=== PATIENT | female | born 1950 | race Caucasian/White ===

== ENCOUNTER → 2016-10-08 | Outpatient (CLI) | payer MEDICARE, OTHER ==
--- NOTE | 2016-10-08 09:57 | MR ---
MRI brain without contrast HISTORY: Visual changes, cerebrovascular accident Multiplanar multisequence images obtained through the brain and correlated to prior MR brain dated 04 Feb 2012 Cortical atrophy is noted. No restricted diffusion. White matter signal changes on inversion recovery and T2-weighted sequences are noted in the right frontal and parietal lobes similar to prior exam as well as in the left frontoparietal distribution. Scattered hyperintensities are also present on inve rsion recovery and T2-weighted sequences within the periventricular and subcortical white matter. The re is no mass effect. Cerebellopontine angles, corpus callosum, pituitary, cervical medullary junctio n are stable. Some inflammatory changes present within the bilateral maxillary sinuses, ethmoid air c ells. Inflammatory change again noted within the mastoids on the left. There are normal vascular flow voids present. The orbits show symmetric appearance. IMPRESSION: Chronic watershed infarctions show a similar appearance to previous exam. Additional find ings above.
== END | disposition home or self-care (01) ==
LOC: RADMRIMAIN 08:38
PROVIDERS: ATTEND Family Medicine
DX: H53.9 Unspecified visual disturbance (principal); Z86.73 Personal history of transient ischemic attack (TIA), and cerebral infarction without residual deficits
CPT/HCPCS: 70551

== ENCOUNTER → 2016-10-19 | Outpatient (CLI) | payer MEDICARE, OTHER ==
--- NOTE | 2016-10-22 07:03 | MM ---
Reason for exam: screening (asymptomatic). Last mammogram was performed 1 year and 3 months ago. History: Patient is postmenopausal. Family history of breast cancer in maternal cousin and breast cancer in maternal aunt at age 52. Excisional biopsy of the left breast. Physical Findings: A clinical breast exam by your physician is recommended on an annual basis and results should be correlated with mammographic findings. MG 3D Screening Mammo W/Cad Bilateral CC and MLO view(s) were taken. Prior study comparison: July 12, 2015, bilateral MG screening mammo w CAD. July 07, 2014, bilateral MG screening mammo w CAD. There are scattered fibroglandular densities. There is no discrete abnormality. No significant changes when compared with prior studies. ASSESSMENT: Negative, BI-RAD 1 RECOMMENDATION: Routine screening mammogram of both breasts in 1 year.
== END | disposition home or self-care (01) ==
LOC: RADMAMWWP 09:03
PROVIDERS: ATTEND Family Medicine
DX: Z12.31 Encounter for screening mammogram for malignant neoplasm of breast (principal)
CPT/HCPCS: 77063; G0202

== ENCOUNTER → 2017-12-19 | Outpatient (CLI) | payer MEDICARE, OTHER ==
--- NOTE | 2017-12-19 11:28 | XR ---
EXAMINATION TYPE: XR knee complete bilateral DATE OF EXAM: 12/19/2017 CLINICAL HISTORY: pain TECHNIQUE: Three views of the right knee are obtained. COMPARISON: None. FINDINGS: There is no acute fracture/dislocation. The tri-compartment joint spaces demonstrate mode rate medial tibiofemoral joint space narrowing. Mild patellofemoral joint space narrowing. Suspect an terior loose body. The overlying soft tissue appears unremarkable. IMPRESSION: There is no acute fracture or dislocation. Degenerative changes in the possible loose demetrius dy. ICD 10 NO FRACTURE, INITIAL EVALUATION EXAMINATION TYPE: XR knee complete bilateral DATE OF EXAM: 12/19/2017 CLINICAL HISTORY: pain TECHNIQUE: Three views of the left knee are obtained. COMPARISON: None. FINDINGS: There is no acute fracture/dislocation. The tri-compartment joint spaces appear within no rmal limits. The overlying soft tissue appears unremarkable. IMPRESSION: There is no acute fracture or dislocation ICD 10 NO FRACTURE, INITIAL EVALUATION
== END | disposition home or self-care (01) ==
LOC: RADXRMAIN 10:35
PROVIDERS: ATTEND Family Medicine
DX: M25.561 Pain in right knee (principal); M25.562 Pain in left knee

== ENCOUNTER 2018-04-17 09:57 | Day surgery (SDC) | payer MEDICARE, OTHER ==
[2018-04-14 15:57] VITALS: BMI 34.4
[2018-04-17 11:02] VITALS: RESP 18; TEMP 97.8
[2018-04-17] MEDS: LACTATED RINGERS 1,000 ML IV SCH ×2 (11:14→11:16)
[2018-04-17] MEDS ORDERED: LIDOCAINE 1% INJ 10MG/ML (20 ML MDV) ONE (11:18)
[2018-04-17] MEDS ORDERED: PROPOFOL 10 MG/ML 20 ML VIAL IV ONE (11:18)
--- NOTE | 2018-04-17 11:29 | P.PCN ---
Date of Procedure: 04/17/18 Procedure(s) Performed: BRIEF HISTORY: Patient is a 68-year-old, pleasant, white female , scheduled for an upper endoscopy as a part of evaluation of long-standing history of GERD. He has been on Nexium 40 mg daily for several years but recently she is been having worsening symptoms at night with intermittent episodes of nausea vomiting and passive regurgitation. She is hence scheduled for an upper endoscopy to rule out complicated reflux disease. PROCEDURE PERFORMED: Esophagogastroduodenoscopy with biopsy. PREOPERATIVE DIAGNOSIS: Long-standing history of GERD. IV sedation per anesthesia. PROCEDURE: After informed consent was obtained, the patient was brought into the endoscopy unit. IV sedation was administered by Anesthesia under continuous monitoring. Initially the Olympus GIF-140 video endoscope was inserted into the mouth. Esophagus intubated without any difficulty. It was gradually advanced into the stomach and duodenum and carefully examined. The bulb and the second part of the duodenum appeared normal. The scope at this time was withdrawn to the stomach, adequately insufflated with air, and upon careful examination, mucosa of the antrum, had mild gastritis and biopsies were done from this area. The body, cardia and the fundus appeared normal. The scope was then withdrawn into the esophagus. Small hiatal hernia noted. The GE junction was located at 39 cm from the incisors. There were linear erosions in the distal esophagus consistent with LA grade B reflux esophagitis. Rest of the esophagus appeared normal and the patient tolerated the procedure well IMPRESSION: 1. Small hiatal hernia and linear erosions in the distal esophagus consistent with LA grade B reflux esophagitis. 2. Mild antral gastritis. RECOMMENDATIONS: The findings of this examination were discussed with the patient her family. She was advised to change the Nexium to evening half hour before dinner and follow antireflux measures. She was also advised to use Zantac at bedtime as needed..
[2018-04-17 12:19] VITALS: BP 111/71; PULSE 58
== END 2018-04-17 13:13 | disposition home or self-care (01) ==
LOC: ORWHC2ENDO 09:57
PROVIDERS: ATTEND Internal Medicine Gastroenterology
DX: K21.0 Gastro-esophageal reflux disease with esophagitis (principal); K29.50 Unspecified chronic gastritis without bleeding; K44.9 Diaphragmatic hernia without obstruction or gangrene; E78.5 Hyperlipidemia, unspecified; I10 Essential (primary) hypertension; Z79.82 Long term (current) use of aspirin; Z79.899 Other long term (current) drug therapy
CPT/HCPCS: 88305; 43239; J2001; J2704

== ENCOUNTER → 2018-04-23 | Outpatient (CLI) | payer MEDICARE, OTHER ==
--- NOTE | 2018-04-24 11:19 | MM ---
Reason for exam: screening (asymptomatic). Last mammogram was performed 1 year and 6 months ago. History: Patient is postmenopausal. Family history of breast cancer in maternal cousin and breast cancer in maternal aunt at age 52. Excisional biopsy of the left breast. Physical Findings: A clinical breast exam by your physician is recommended on an annual basis and results should be correlated with mammographic findings. MG 3D Screening Mammo W/Cad Bilateral CC and MLO view(s) were taken. Prior study comparison: October 19, 2016, bilateral MG 3d screening mammo w/cad. July 12, 2015, bilateral MG screening mammo w CAD. There are scattered fibroglandular densities. No suspicious abnormality. No significant changes when compared with prior studies. ASSESSMENT: Negative, BI-RAD 1 RECOMMENDATION: Routine screening mammogram of both breasts in 1 year.
== END | disposition home or self-care (01) ==
LOC: RADMAMWWP 11:12
PROVIDERS: ATTEND Family Medicine
DX: Z12.31 Encounter for screening mammogram for malignant neoplasm of breast (principal)
CPT/HCPCS: 77063; 77067

== ENCOUNTER → 2018-10-07 | Outpatient (CLI) | payer MEDICARE, OTHER ==
[2018-10-07 13:19] LABS: HGB 14.6 gm/dL (11.4-16.0); MCH 31.2 pg (25.0-35.0); MCHC 33.3 g/dL (31.0-37.0); MCV 93.7 fL (80.0-100.0); Mean Platelet Volume 7.2; Platelet Count 137 k/uL (150-450); RBC 4.69 m/uL (3.80-5.40); RDW 15.2 % (11.5-15.5); WBC 7.7 k/uL (3.8-10.6)
[2018-10-07 14:14] LABS: Potassium 4.7 mmol/L (3.5-5.1)
== END ==
LOC: LABPAT 11:47
PROVIDERS: ATTEND Internal Medicine Cardiovascular Disease
DX: Z01.812 Encounter for preprocedural laboratory examination (principal); I10 Essential (primary) hypertension; R94.39 Abnormal result of other cardiovascular function study
CPT/HCPCS: 36415; 80051; 82565; 84520; 85027

== ENCOUNTER 2018-10-16 07:41 | Day surgery (SDC) | payer MEDICARE, OTHER ==
[2018-10-14 08:21] VITALS: BMI 32.8
[~2018-10-16 07:41] MED LIST: ALPRAZolam 0.25 MG TAB PO PRN; ALPRAZolam 0.5 MG TAB PO PRN; ASPIRIN 325 MG TAB PO STA; ATORVASTATIN 80 MG TAB PO STA; NITROGLYCERIN SL TABS 0.4 MG TAB SUBLINGUAL PRN; SODIUM CHLORIDE 0.9% 1,000 ML in EMPTY BAG 1 BAG IV ONE
[2018-10-16] MEDS ORDERED: amLODIPine 5 MG TAB ONE (08:08)
[2018-10-16 08:40] VITALS: RESP 16; TEMP 98.3
[2018-10-16] MEDS ORDERED: LIDOCAINE 1% INJ 10MG/ML (20 ML MDV) ONE (09:39)
[2018-10-16] MEDS ORDERED: VERAPAMIL 2.5 MG/ML 2 ML AMP ONE (09:39)
[2018-10-16] MEDS ORDERED: fentaNYL (PF) 50 MCG/ML 2 ML AMP ONE (09:46)
[2018-10-16] MEDS ORDERED: fentaNYL (PF) 50 MCG/ML 2 ML AMP IV ONE (09:48)
[2018-10-16] MEDS ORDERED: MIDAZOLAM 2 MG/2 ML VIAL IV ONE (09:48)
[2018-10-16] MEDS ORDERED: LIDOCAINE 1% INJ 10MG/ML (20 ML MDV) SQ ONE (09:54)
[2018-10-16] MEDS ORDERED: VERAPAMIL SYRINGE (5 MG/10 ML) INTRAARTER ONE ×2 (09:57→10:18)
[2018-10-16] MEDS ORDERED: HEPARIN SODIUM 1,000 UN/ML (10ML VL) ONE (09:59)
[2018-10-16] MEDS ORDERED: HEPARIN SODIUM 1,000 UN/ML (10ML VL) IV ONE (10:00)
[2018-10-16] MEDS ORDERED: RX INFO: IV CONTRAST WAS GIVEN 1 EACH MISC MISCELLANE PRN (10:20)
[2018-10-16] MEDS ORDERED: IOPAMIDOL-370 125ML BTL INJ ONE (10:22)
--- NOTE | 2018-10-16 10:28 | P.CARDCATH ---
Date of Procedure: 10/16/18 Preoperative Diagnosis: Positive stress test Postoperative Diagnosis: Normal coronary arteries Procedure(s) Performed: Left heart catheterization without left ventriculography Description of Procedure: HISTORY: This is a 68-year-old female with history of hypertension, hyperglycemia and smoking who recently had a stress test which showed a possible ischemia in the inferior wall area. Patient is given the option of having a stress echocardiogram or cardiac catheterization. Patient preferred to have a cardiac cath for definitive diagnosis CONSENT:I have discussed the risks, benefits and alternative therapies for the above-mentioned procedure and for both sedation/analgesia as well as necessary blood product administration, if indicated, as they pertain to this patient. The patient has indicated understanding and acceptance of the risks and procedures discussed. PROCEDURE: Patient was brought to the lab in a fasting state. Patient was given some IV sedation. The right wrist is infiltrated with lidocaine and right radial artery was entered using Seldinger technique. A 6-Maldivian catheter was left in place and selective coronary arteriography was performed. Patient tolerated the procedure well. TR band was applied for hemostasis. No immediate complications were noted and patient was transferred to [facility] in a stable condition Conscious Sedation: Versed 1mg Fentanyl 50 g Duration 26minutes HEMODYNAMICS: The aortic pressure is 140/70. The left ventricle end-diastolic pressure is about 10. There was no gradient across the aortic valve SELECTIVE CORONARY ARTERIOGRAPHY: LEFT MAIN: Normal length and patent THE LEFT ANTERIOR DESCENDING CORONARY ARTERY:. This is a good caliber vessel giving rise to good-sized 2 diagonal and septal branches. The LAD and branches are free of occlusive disease THE LEFT CIRCUMFLEX AND IS CORONARY ARTERY:. This is a good caliber vessel giving rise to good-sized OM branch. Free of occlusive disease. Codominant THE RIGHT CORONARY ARTERY: This is a codominant vessel is good in size. Free of occlusive disease LEFT VENTRICULOGRAPHY:. Not performed FINAL IMPRESSION: Normal coronary arteries. Normal end-diastolic pressure PLAN: Risk factor modification and medical therapy PROGNOSIS:. Good
[2018-10-16] MEDS ORDERED: SODIUM CHLORIDE 0.9% 1,000 ML IV SCH (10:30)
[2018-10-16 14:37] VITALS: BP 139/66; PULSE 54
== END 2018-10-16 14:37 | disposition home or self-care (01) ==
LOC: CATHCVL 07:41
PROVIDERS: ATTEND Internal Medicine Cardiovascular Disease
DX: R94.39 Abnormal result of other cardiovascular function study (principal); I10 Essential (primary) hypertension; E78.5 Hyperlipidemia, unspecified; E78.00 Pure hypercholesterolemia, unspecified; R73.9 Hyperglycemia, unspecified; F17.210 Nicotine dependence, cigarettes, uncomplicated; Z79.82 Long term (current) use of aspirin; Z79.899 Other long term (current) drug therapy; Z86.73 Personal history of transient ischemic attack (TIA), and cerebral infarction without residual deficits
CPT/HCPCS: 93458; C1894; J2250; J2001; J3010; J1644; Q9967

== ENCOUNTER → 2019-07-29 | Outpatient (CLI) | payer MEDICARE, OTHER ==
--- NOTE | 2019-07-29 13:36 | MM ---
Reason for exam: screening (asymptomatic). Last mammogram was performed 1 year and 3 months ago. History: Patient is postmenopausal. Family history of breast cancer in maternal cousin and breast cancer in maternal aunt at age 52. Excisional biopsy of the left breast. Physical Findings: A clinical breast exam by your physician is recommended on an annual basis and results should be correlated with mammographic findings. MG 3D Screening Mammo W/Cad Bilateral CC and MLO view(s) were taken. Prior study comparison: April 23, 2018, bilateral MG 3d screening mammo w/cad. October 19, 2016, bilateral MG 3d screening mammo w/cad. There are scattered fibroglandular densities. No suspicious abnormality. Left skin defect is chronic. No significant changes when compared with prior studies. ASSESSMENT: Benign, BI-RAD 2 RECOMMENDATION: Routine screening mammogram of both breasts in 1 year.
== END | disposition home or self-care (01) ==
LOC: RADMAMWWP 09:00
PROVIDERS: ATTEND Family Medicine
DX: Z12.31 Encounter for screening mammogram for malignant neoplasm of breast (principal)
CPT/HCPCS: 77063; 77067

== ENCOUNTER 2021-03-20 03:23 | Inpatient (IN) | payer MEDICARE, OTHER ==
--- NOTE | 2021-03-20 03:48 | ED ---
Neuro HPI - General Chief Complaint: Neuro Symptoms/Deficit Stated Complaint: poss stroke symptoms Time Seen by Provider: 03/20/21 03:40 Source: patient Mode of arrival: wheelchair Limitations: no limitations - History of Present Illness Is the patient presenting with stroke symptoms?: Yes Last Known Well Date: 03/19/21 Last Known Well Time: 19:00 Initial Comments: This patient is a 71-year-old woman brought by ambulance to be evaluated for suspected stroke. Most of the history is from the patient's who states that he had gone to sleep around 7 PM and that his last known normal time. He had awakened after to define the patient's was having difficulty with speech and had right arm weakness. He called EMS who brings the patient here for evaluation. History from the patient is somewhat limited. Verbal responses are delayed and there is mild dysarthria. She denies head pain or injury. She does complain of weakness indicating mainly the right side. Patient denies chest pain and dyspnea. Location: right face, right arm, right leg History of same: No Place: home Severity: moderate Quality: weak Improves With: none Worsens With: none On Anticoagulants: No Associated Symptoms: denies other symptoms - Related Data Home Medications: Home Medications Medication Instructions Recorded Confirmed Atorvastatin Calcium [Lipitor] 10 mg PO DAILY 06/20/15 03/20/21 amLODIPine BESYLATE [Norvasc] 5 mg PO DAILY 04/14/18 03/20/21 Tolterodine ER [Detrol LA] 4 mg PO DAILY 10/14/18 03/20/21 Aspirin EC [Ecotrin Low Dose] 81 mg PO DAILY 03/20/21 03/20/21 Cetirizine HCl 10 mg PO DAILY 03/20/21 03/20/21 Esomeprazole Magnesium [NexIUM] 80 mg PO DAILY 03/20/21 03/20/21 Fluticasone Nasal [place] [Flonase 2 spray EA NOSTRIL DAILY PRN 03/20/21 03/20/21 Nasal [place]] Allergies/Adverse Reactions: Allergies Allergy/AdvReac Type Severity Reaction Status Date / Time No Known Allergies Allergy Verified 03/20/21 09:43 Review of Systems ROS Statement: Those systems with pertinent positive or pertinent negative responses have been documented in the HPI. ROS Other: All systems not noted in ROS Statement are negative. Constitutional: Denies: fever Respiratory: Denies: cough, dyspnea Cardiovascular: Denies: chest pain, palpitations Gastrointestinal: Denies: abdominal pain, vomiting, diarrhea Musculoskeletal: Denies: back pain Skin: Denies: rash Neurological: Reports: weakness, confusion. Denies: headache General Exam Limitations: no limitations General appearance: alert, in no apparent distress Head exam: Present: atraumatic, normocephalic Eye exam: Present: normal appearance, PERRL. Absent: scleral icterus, conjunctival injection ENT exam: Present: normal oropharynx Neck exam: Present: normal inspection, full ROM Respiratory exam: Present: normal lung sounds bilaterally. Absent: respiratory distress, wheezes, rales, rhonchi, stridor Cardiovascular Exam: Present: regular rate, normal rhythm, normal heart sounds. Absent: systolic murmur, diastolic murmur, rubs, gallop GI/Abdominal exam: Present: soft. Absent: distended, tenderness, guarding, re bound, rigid, mass Extremities exam: Present: normal inspection, normal capillary refill. Absent: pedal edema, calf tenderness Back exam: Present: normal inspection. Absent: CVA tenderness (R), CVA tenderness (L) Neurological exam: Present: alert Skin exam: Present: warm, dry, intact, normal color. Absent: rash Stroke MDM - Lab Data Result diagrams: 03/20/21 03:46 03/20/21 03:46 Lab Results 03/20/21 03/20/21 03/20/21 Range/Units 03:42 03:46 03:46 WBC 8.9 (3.8-10.6) k/uL RBC 4.56 (3.80-5.40) m/uL Hgb 14.8 (11.4-16.0) gm/dL Hct 43.4 (34.0-46.0) % MCV 95.1 (80.0-100.0) fL MCH 32.4 (25.0-35.0) pg MCHC 34.1 (31.0-37.0) g/dL RDW 15.1 (11.5-15.5) % Plt Count 155 (150-450) k/uL MPV 7.3 Neutrophils % 82 % Lymphocytes % 14 % Monocytes % 3 % Eosinophils % 1 % Basophils % 0 % Neutrophils # 7.3 (1.3-7.7) k/uL Lymphocytes # 1.2 (1.0-4.8) k/uL Monocytes # 0.2 (0-1.0) k/uL Eosinophils # 0.1 (0-0.7) k/uL Basophils # 0.0 (0-0.2) k/uL PT 10.7 (9.0-12.0) sec INR 1.0 (<1.2) APTT 20.8 L (22.0-30.0) sec Sodium (137-145) mmol/L Potassium (3.5-5.1) mmol/L Chloride (98-107) mmol/L Carbon Dioxide (22-30) mmol/L Anion Gap mmol/L BUN (7-17) mg/dL Creatinine (0.52-1.04) mg/dL Est GFR (CKD-EPI)AfAm (>60 ml/min/1.73 sqM) Est GFR (CKD-EPI)NonAf (>60 ml/min/1.73 sqM) Glucose (74-99) mg/dL POC Glucose (mg/dL) 176 H (75-99) mg/dL POC Glu [employer] ID Jahaira Rae Calcium (8.4-10.2) mg/dL Total Bilirubin (0.2-1.3) mg/dL AST (14-36) U/L ALT (4-34) U/L Alkaline Phosphatase (38-126) U/L Troponin I (0.000-0.034) ng/mL Total Protein (6.3-8.2) g/dL Albumin (3.5-5.0) g/dL 03/20/21 03/20/21 Range/Units 03:46 03:46 WBC (3.8-10.6) k/uL RBC (3.80-5.40) m/uL Hgb (11.4-16.0) gm/dL Hct (34.0-46.0) % MCV (80.0-100.0) fL MCH (25.0-35.0) pg MCHC (31.0-37.0) g/dL RDW (11.5-15.5) % Plt Count (150-450) k/uL MPV Neutrophils % % Lymphocytes % % Monocytes % % Eosinophils % % Basophils % % Neutrophils # (1.3-7.7) k/uL Lymphocytes # (1.0-4.8) k/uL Monocytes # (0-1.0) k/uL Eosinophils # (0-0.7) k/uL Basophils # (0-0.2) k/uL PT (9.0-12.0) sec INR (<1.2) APTT (22.0-30.0) sec Sodium 142 (137-145) mmol/L Potassium 4.1 (3.5-5.1) mmol/L Chloride 108 H (98-107) mmol/L Carbon Dioxide 22 (22-30) mmol/L Anion Gap 12 mmol/L BUN 21 H (7-17) mg/dL Creatinine 1.06 H (0.52-1.04) mg/dL Est GFR (CKD-EPI)AfAm 61 (>60 ml/min/1.73 sqM) Est GFR (CKD-EPI)NonAf 53 (>60 ml/min/1.73 sqM) Glucose 190 H (74-99) mg/dL POC Glucose (mg/dL) (75-99) mg/dL POC Glu [employer] ID Calcium 9.6 (8.4-10.2) mg/dL Total Bilirubin 0.7 (0.2-1.3) mg/dL AST 20 (14-36) U/L ALT 21 (4-34) U/L Alkaline Phosphatase 79 (38-126) U/L Troponin I <0.012 (0.000-0.034) ng/mL Total Protein 7.8 (6.3-8.2) g/dL Albumin 4.6 (3.5-5.0) g/dL - Thrombolytic Inclusion/Exclusion Thrombolytic Exclusion Criteria: Symptom Onset > 4.5 Hours - EKG Data -: EKG Interpreted by Me EKG shows normal: sinus rhythm, axis (Normal), intervals (Normal), ST-T waves (Normal) Rate: normal (Rate 95 bpm) When compared to previous EKG there are: no significant change Interpretation: other (Possible old anterolateral infarct.) 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 stroked 2011 History of Any Multi-Drug Resistant Organisms: None Reported Past Surgical History: Breast Surgery Additional Past Surgical History / Comment(s): breast biopsy Past Anesthesia/Blood Transfusion Reactions: No Reported Reaction Past Psychological History: No Psychological Hx Reported Smoking Status: Never smoker Past Alcohol Use History: None Reported Past Drug Use History: None Reported - Past Family History Mother Family Medical History: No Reported History Course Vital Signs 03/20/21 03/20/21 03/20/21 03:26 03:40 03:55 Temperature 97.5 F L Pulse Rate 98 95 93 Respiratory 18 20 24 Rate Blood Pressure 130/83 130/81 126/68 O2 Sat by Pulse 93 L 92 L 91 L Oximetry 03/20/21 03/20/21 03/20/21 04:10 04:25 04:40 Temperature 97.6 F Pulse Rate 95 88 93 Respiratory 27 H 30 H 30 H Rate Blood Pressure 132/80 135/84 135/82 O2 Sat by Pulse 92 L 94 L 95 Oximetry 03/20/21 03/20/21 03/20/21 04:55 05:10 05:25 Temperature Pulse Rate 93 90 92 Respiratory 32 H 33 H 30 H Rate Blood Pressure 132/79 135/85 138/78 O2 Sat by Pulse 95 97 96 Oximetry 03/20/21 05:55 Temperature Pulse Rate 93 Respiratory 30 H Rate Blood Pressure 142/85 O2 Sat by Pulse 97 Oximetry - Reevaluation(s) Reevaluation #1: 03/20/21 04:[address] Ramirez from the stroke team, and discussed case. Patient not TPA candidate. He states it does not appear that thrombectomy is indicated. He would request patient admitted with neurology consultation. Critical Care Time Critical Care Time: Yes (35 minutes) Disposition Clinical Impression: Cerebrovascular accident (CVA) Disposition: ADMITTED IP TO THIS [facility] Condition: Serious Is patient prescribed a controlled substance at d/c from ED?: No
[2021-03-20 03:51] LABS: Basophils % (A) 0 %; Eosinophils # (A) 0.1 k/uL (0-0.7); Eosinophils % (A) 1 %; HCT 43.4 % (34.0-46.0); HGB 14.8 gm/dL (11.4-16.0); Lymphocytes # (A) 1.2 k/uL (1.0-4.8); Lymphocytes % (A) 14 %; MCH 32.4 pg (25.0-35.0); MCHC 34.1 g/dL (31.0-37.0); MCV 95.1 fL (80.0-100.0); Mean Platelet Volume 7.3; Monocytes # (A) 0.2 k/uL (0-1.0); Monocytes % (A) 3 %; Neutrophils # (A) 7.3 k/uL (1.3-7.7); Neutrophils % (A) 82 %; Platelet Count 155 k/uL (150-450); RBC 4.56 m/uL (3.80-5.40); RDW 15.1 % (11.5-15.5); WBC 8.9 k/uL (3.8-10.6)
[2021-03-20 03:52] LABS: Glucose,Whole Blood 176 mg/dL (75-99)
[2021-03-20 04:01] LABS: Albumin 4.6 g/dL (3.5-5.0); Calcium 9.6 mg/dL (8.4-10.2); Potassium 4.1 mmol/L (3.5-5.1); Total Bilirubin 0.7 mg/dL (0.2-1.3); Total Protein 7.8 g/dL (6.3-8.2)
[2021-03-20 04:08] LABS: Prothrombin Time 10.7 sec (9.0-12.0)
[2021-03-20 04:09] LABS: Partial Thromboplastin Time 20.8 sec (22.0-30.0)
--- NOTE | 2021-03-20 04:15 | CT ---
EXAMINATION TYPE: CT brain wo con for TPA DATE OF EXAM: 03/20/2021 COMPARISON: 02/01/2012 HISTORY: ams CT DLP: 1072.30 mGycm Automated exposure control for dose reduction was used. There is cerebral cortical atrophy. There is no mass effect nor midline shift. There is no sign of in tracranial hemorrhage. There is 2 cm hypodense area in the hollis-white matter junction right posterior frontal lobe consistent with an old infarct. There is 3.5 x 2 cm hypodensity left posterior parietal lobe related to old infarct. There is no evidence for an acute infarct. The skull base is intact. Th ere is incomplete pneumatization of the left mastoid sinus. I see no bony destructive process. Calvar ium is intact. IMPRESSION: Old right frontal cortical infarct increased in size compared to old exam. There is right parietal co rtical infarct increased in size compared to old exam. No hemorrhage.
--- NOTE | 2021-03-20 04:17 | XR ---
EXAMINATION TYPE: XR chest 1V DATE OF EXAM: 03/20/2021 COMPARISON: NONE HISTORY: Altered mental status TECHNIQUE: Single view FINDINGS: There is some coarse interstitial density in both lungs. Heart is slightly enlarged. There is no pleural effusion. There are chest leads. There is some mild infiltrate in the lateral right upp er lobe. IMPRESSION: Pulmonary interstitial fibrosis. Small area of infiltrate lateral right upper lobe could be more extensive fibrosis. Similar change is seen also at the lateral left lung base. No heart failu re.
--- NOTE | 2021-03-20 04:46 | CT ---
EXAMINATION TYPE: CT angio head neck DATE OF EXAM: 03/20/2021 COMPARISON: HISTORY: ams CT DLP: 383 mGycm Automated exposure control for dose reduction was used. CONTRAST: Performed with IV Contrast, patient injected with 65 mL of Isovue 370. There are 3-D post processed images. Images obtained from the aortic arch to the vertex of the brain with IV contrast. There is normal branching pattern of the great vessels on the aortic arch. There is bilateral arteria l flow in the subclavian arteries. There is mild atheromatous change in the aortic arch. There is arterial flow in the common internal and external carotid arteries bilaterally. There is garcia que formation at the carotid artery bifurcations. There is less than 15% stenosis in both internal ca rotid arteries. There is arterial flow in both vertebral arteries. There is arterial flow in the vert ebrobasilar artery system. There is arterial flow in the anterior middle and posterior cerebral arteries. There is no mass effec t. I see no intracranial arterial stenosis. I see no evidence of intracranial aneurysm or neovascular ity. There is normal enhancement of the venous sinuses. IMPRESSION: No significant intracranial angiographic abnormality. Minimal plaque at the carotid artery bifurcations without evidence of hemodynamic stenosis.
[2021-03-20] MEDS ORDERED: ASPIRIN 325 MG TAB PO STA (04:52)
[2021-03-20] MEDS: SODIUM CHLORIDE 0.9% 1,000 ML IV SCH ×2 (05:23→17:32)
[2021-03-20] MEDS: CHOLECALCIFEROL 25 MCG (1000 IU) TABLET PO SCH (08:14)
[2021-03-20] MEDS: amLODIPine 5 MG TAB PO SCH (08:14)
[2021-03-20] MEDS: PANTOPRAZOLE 40 MG TABLET PO SCH (08:14)
[2021-03-20] MEDS: OXYBUTYNIN 10 MG TAB.ER.24 PO SCH (08:14)
[2021-03-20] MEDS ORDERED: ATORVASTATIN 40 MG TAB PO SCH ×2 (09:00→21:00)
--- NOTE | 2021-03-20 10:06 | P.CNNES ---
History of Present Illness Consult date: 03/20/21 Requesting physician: Lacho Canales Reason for Consult: acute ischemic stroke History of Present Illness: This is a 71-year-old woman with medical history of old stroke (2004 and 2011), hypertension, hyperlipidemia and osteoarthritis who presented emergency department on 03/20/2021 difficulty with speech and right arm weakness. The patient presented via EMS and arrived to our facility at 3:23 AM. The patient (Josh) is at bedside who helps out with some of the history. Per the patient's the he stated he went to bed around 7 PM on 03/19/2021 and she was doing normal. Then the when he woke up around 2:20 AM on 03/20/2020 when he noticed that the patient was having right-sided weakness and having difficulty getting her words out. He said that that his grandson noticed that that she was off around 11 PM on 03/19/2021. Prior to this patient was at baseline and had no focal deficits and no dif ficulty getting her words out. As a result of her deficit the EMS was contacted. Patient denies any seizure-like activity, any jerk in of any of the extremity, foaming around the mouth at, any fixed gaze deviation upon seeing her around 2:20 AM. Some of the patient on medication consist of aspirin 325 daily, Lipitor 40 mg daily, amlodipine, Omeprazole, vitamin D3. Her the patient's she had the slurring of the speech, difficulty getting her words out and the right-sided weakness in 2004 and briefly in 2011 which resolved. Patient was seeing a neurologist in the past but that neurologist retired as a result she hasn't been seeing any neurologist recently. In the ED and was felt the patient had right facial weakness as well as right- sided weakness. Some of the workup in the hospital consisted of: Initial vital signs is blood pressure of 130/83, heart rate of 98, respiratory of 18, temperature of 97.5 Fahrenheit oral pulse ox of 93% at room air. Patient's pulse ox was as low as 91% during this hospital stay. CT of the head is reported as old right frontal cortical infarct increased in size compared to old exam. There is a right parietal cortical infarct increased in size compared to old exam. No hemorrhage. The previous the comparison was the N 2011. CT angiography of the head and neck was reported as no significant intercranial and angiographic abnormality. Minimal plaque at the carotid artery bifurcation without evidence of hemodynamic stenosis. ED spoke with the stroke team (Dr. Ramirez) and the it is reported the patient is not a TPA candidate as well as note thrombectomies indicated that. Otherwork-up: EKG is reported as normal sinus rhythm. Possible anterolateral infarct, age undetermined. Abnormal EKG. CBC with differential and is unremarkable. Initial POC glucose is 176. The creatinine is 1.06 which is slightly elevated that. Otherwise that chemistry panel basic is unremarkable. Calcium is 9.6, AST of 20 and ALT of the 21 which is within normal limits. Roque virus PCR was not detected. Upon reviewing medical record the seems that the patient had MRI of the brain in 2017 for visual changes and CVA and was reported as chronic watershed infarction shows a similar appearance to previous exam. Additional finding at the above. In the body they reported it is reported as cortical atrophy is noted. No restriction diffusion. White matter signal changes on emergent recovery and T2 weighted sequence are noted in the right frontal and parietal lobes similar to prior exam as well as in the left frontal parietal distribution. Scattered hyperintensities are also present on inversion recovery and T2 weighted sequence within the periventricular and subcortical white matter. I personally reviewed the MRI of the brain and I felt that the patient had the flare changes over the right frontal and parietal region as well as left frontal parietal distribution and had the small foci over the bilateral cerebellar. I don't think the current CT of the head is any worse then the MRI of the brain in 2017 regarding the finding over the right frontal parietal region. I don't have access to the previous CT of the head the in 2011. It seems that the patient had the stroke workup in the past. Review of Systems Review of system: The 12 point system was reviewed and apparent positive and negative per HPI. 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 stroked 2011 History of Any Multi-Drug Resistant Organisms: None Reported Past Surgical History: Breast Surgery Additional Past Surgical History / Comment(s): breast biopsy Past Anesthesia/Blood Transfusion Reactions: No Reported Reaction Past Psychological History: No Psychological Hx Reported Smoking Status: Never smoker Past Alcohol Use History: None Reported Past Drug Use History: None Reported - Past Family History Mother Family Medical History: No Reported History Medications and Allergies Home Medications Medication Instructions Recorded Confirmed Type Atorvastatin Calcium [Lipitor] 10 mg PO DAILY 06/20/15 03/20/21 History amLODIPine BESYLATE [Norvasc] 5 mg PO DAILY 04/14/18 03/20/21 History Tolterodine ER [Detrol LA] 4 mg PO DAILY 10/14/18 03/20/21 History Aspirin EC [Ecotrin Low Dose] 81 mg PO DAILY 03/20/21 03/20/21 History Cetirizine HCl 10 mg PO DAILY 03/20/21 03/20/21 History Esomeprazole Magnesium [NexIUM] 80 mg PO DAILY 03/20/21 03/20/21 History Fluticasone Nasal [place] [Flonase 2 spray EA NOSTRIL DAILY PRN 03/20/21 03/20/21 History Nasal [place]] Allergies Allergy/AdvReac Type Severity Reaction Status Date / Time No Known Allergies Allergy Verified 03/20/21 09:43 Physical Examination - Vital Signs Vital Signs: Vital Signs Temp Pulse Pulse Resp BP BP BP 03/20/21 08:10 97.8 F 84 18 141/67 03/20/21 06:15 97.0 F L 88 18 132/67 03/20/21 05:55 93 30 H 142/85 03/20/21 05:25 92 30 H 138/78 03/20/21 05:10 90 33 H 135/85 03/20/21 04:55 93 32 H 132/79 03/20/21 04:40 97.6 F 93 30 H 135/82 03/20/21 04:25 88 30 H 135/84 03/20/21 04:10 95 27 H 132/80 03/20/21 03:55 93 24 126/68 03/20/21 03:40 95 20 130/81 03/20/21 03:26 97.5 F L 98 18 130/83 Pulse Ox 03/20/21 08:10 94 L 03/20/21 06:15 96 03/20/21 05:55 97 03/20/21 05:25 96 03/20/21 05:10 97 03/20/21 04:55 95 03/20/21 04:40 95 03/20/21 04:25 94 L 03/20/21 04:10 92 L 03/20/21 03:55 91 L 03/20/21 03:40 92 L 03/20/21 03:26 93 L Intake and Output 03/19/21 03/20/21 03/20/21 22:59 06:59 14:59 Intake Total 30 Balance 30 Intake: Oral 30 Other: # Voids 0 Weight 108.4 kg GENERAL: The patient is lying in bed and is not in acute distress. CHEST: The heart rate is regular rate rhythm. No murmurs to auscultation. No carotid bruit bilaterally. LUNG: Clear to auscultation bilaterally no wheezing noted throughout. Not labored breathing. ABDOMEN/GI: Bowel sounds present in all 4 quadrants. No tenderness to palpation throughout. NEUROLOGICAL: Higher mental function: The patient is awake, alert, oriented to self, place and time. She is somewhat slow to respond. He is able to correctly name current [place]. president. Patient is following simple and complex commands. Has broca aphasia. No neglect. Cranial nerves: The pupils are round, equal and reactive to light and accommodation. Visual skaggs are full to confrontation throughout. Extraocular movement is intact no nystagmus is noted. Facial sensation is normal to touch throughout. The facial strength is right nasolabial flattening. Hearing is normal bilaterally to hand rub. Tongue is midline and moved [id number] without any difficulty. Mild dysarthria is noted. Shoulder shrug is normal bilaterally. Motor: Gait is deferred. The strength is 4/5 over the right side. Right hand media marketing specialist is 4+. Otherwise 5 over 5 throughout. Has slight increase tone over the right elbow, hand and knee. Normal bulk. Cerebellum: Normal finger to nose bilaterally. Sensation: Sensation is normal to touch throughout. Reflexes (right/left): 3+ over the right side while 2+ over the left side Plantars are upgoing bilaterally. Results - Laboratory Findings CBC and BMP: 03/20/21 03:46 03/20/21 03:46 Abnormal Lab Findings: Abnormal Labs 03/20/21 03/20/21 03/20/21 03:42 03:46 03:46 APTT 20.8 L Chloride 108 H BUN 21 H Creatinine 1.06 H Glucose 190 H POC Glucose (mg/dL) 176 H Assessment and Plan Assessment: This is a 71-year-old women who presented emergency department on 03/20/2021 for right-sided weakness as well as difficulty getting her words out with slurring of the speech. Last normal was 7 PM that was seen by the patient's . Around 11 PM and was felt that the patient was off by her grandchild. Around 2:20 AM on 03/20/2021. patient noticed that the she had neurological deficits. Patient did not receive IV TPA since outside the window. * Right-sided weakness, dysarthria and broca aphasia. Likely acute ischemic stroke. Rule out seizure since has history of stroke and has previous episodes like this in past that resolved. * History of stroke in 2004 and 2011 with transient right sided weakness, aphasia and dysarthria (last MRI brain in 2017 shows old right frontal and parietal stroke and left/frontoparietal. Upon reviewing it I felt there is scattered foci over the bilateral cerebellar region). Seems possibly cardi oembolic. * Hypertension * Hyperlipidemia * History of Osteoarthritis Plan: * CT of the head is reported as old right frontal cortical infarct increased in size compared to old exam. There is a right parietal cortical infarct increased in size compared to old exam. No hemorrhage. The previous the comparison was the N 2011. * CT angiography of the head and neck was reported as no significant intercranial and angiographic abnormality. Minimal plaque at the carotid artery bifurcation without evidence of hemodynamic stenosis. * I don't think the current CT of the head is any worse then the MRI of the brain in 2017 regarding the finding over the right frontal parietal region. I don't have access to the previous CT of the head the in 2011. * I ordered MRI the brain, 2D echo with bubble study. * In the ED the patient was given aspirin 325 once and was started on her home medication of aspirin 325 daily. I added Plavix 75mg daily in addition. I increased home dose of Lipitor 40 mg daily at bedtime to 80mg qhs. * Will get routine EEG. * Lipid panel is ordered by the ED and is pending * PT, OT and REFERRAL MANAGEMENT LIAISON are consulted. * Ordered TSH level. Also ordered HbA1c to find out whether the patient any other risk facts for stroke. * Placed on every 4 hours neuro checks and continue his cardiac monitoring. * We'll defer the rest of the medical management to the primary team. The plan is discussed with the patient and her (Josh) who is at bedside. Also played discussed with the primary team. Thank you for the Consultation. Nakul Wilkes M.D. Neuro-hospitalist Time with Patient: Greater than 30
[2021-03-20] MEDS: CLOPIDOGREL 75 MG TAB PO SCH (10:20)
[2021-03-20 11:37] LABS: T4, Free (Free Thyroxine) 1.16 ng/dL (0.78-2.19)
--- NOTE | 2021-03-20 13:02 | MR ---
MR brain without contrast HISTORY: Right-sided weakness, cerebrovascular accident, stroke Multiplanar multisequence imaging through the brain, correlation to prior brain MRI 10/08/2016, CT brai n 03/20/2021 There is restricted diffusion at the level of the convexity on the left at the frontal parietal albino x, corresponding hyperintensity and inversion recovery T2-weighted sequences. Additional chronic wate rshed infarcts are again noted with associated gliosis noted on inversion recovery T2-weighted sequen gagan, some scattered periventricular hyperintensities are present on inversion recovery T2-weighted se quences, no evident hemorrhage or hydrocephalus, there is some motion on exam. Cerebellopontine angle s, corpus callosum, pituitary and cervical measuring junction are within normal limits. There are exp ected vascular flow voids. Cortical atrophy is likely age-related. Inflammatory change in the tempora l bone on the left shows a similar appearance. Paranasal sinuses are well aerated, some mild inflamma tory change present in the ethmoid air cells. Orbits show symmetric appearance. impression: Findings consistent with subacute cerebral vascular accident
--- NOTE | 2021-03-20 14:22 | P.HPIM ---
History of Present Illness H&P Date: 03/20/21 HISTORY OF PRESENT ILLNESS This is a 71-year-old female patient of Dr. Foley with past medical history of hypertension, hyperlipidemia, remote history of tobacco use and dependence to previous strokes in 2004 and in 2011, gastroesophageal reflux disease. Patient developed difficulty with speech, difficulty getting her words out and right arm weakness that started yesterday. Noted also the patient is only answering yes or no to all questions and does not elaborate. Her states that this is the same symptoms as she had with her stroke in 2004 and symptoms eventually completely resolved. Patient came into [facility] emergency center for evaluation, she was afebrile, heart rate 98, blood pressure 130/83, pulse ox 93% on room air. CBC was unremarkable. INR 1.0. BUN 21 and creatinine 1.06. Blood sugar 190. Troponin negative on 3 draws. TSH 0.342 and free T4 1 0.16.Coronavirus PCR not detected. CT angiogram of the head and neck revealed no significant intracranial angiographic abnormality. Minimal plaque at the carotid artery bifurcations without evidence of hemodynamic stenosis. CAT scan of the brain revealed old right frontal cortical infarct increased in size compared on exam. Right parietal cortical infarct increased in size. No hemorrhage. MRI of the brain is consistent with subacute cerebral vascular accident. Chest x-ray reveals pulmonary interstitial fibrosis. Small area of infiltrate on her right lower lobe could be more extensive fibrosis. Similar change noted on lateral left lung base. No heart failure. Patient has been admitted to cardiac stepdown unit and seen in consultation by neurology., Speech therapy, PT and OT have been ordered as well as patient has been started on Plavix 75 mg daily, aspirin 325 mg daily, Lipitor increased from 40 mg to 80 mg at bedtime, EEG ordered. Therapies have recommended inpatient rehab and consult added for Dr. Bolaños REVIEW OF SYSTEMS Constitutional: No fever, no chills, no night sweats. No weight change. No weakness, fatigue or lethargy. No daytime sleepiness. EENT: No headache. No blurred vision or double vision, no loss of vision. No loss of Hearing, no ringing in the ears, no dizziness. No nasal drainage or congestion. No epistaxis. No sore throat. Lungs: No shortness of breath, cough, no sputum production. No wheezing. Cardiovascular: No chest pain, no lower extremity edema. No palpitations. No paroxysmal nocturnal dyspnea. No orthopnea. No lightheadedness or dizziness. No syncopal episodes. Abdominal: No abdominal pain. No nausea, vomiting. No diarrhea. No constipation. No bloody or tarry stools.. No loss of appetite. Genitourinary: No dysuria, increased frequency, urgency. No urinary retention. Musculoskeletal: No myalgias. No muscle weakness, no gait dysfunction, no frequent falls. No back pain. No neck pain. Integumentary: No wounds, no lesions. No rash or pruritus. No unusual bruising. No change in hair or nails. Neurologic: Reported aphasia. No facial droop. Reported change in mentation. No head injury. No headache. No paralysis. No paresthesia. Right-sided weakness. Psychiatric: No depression. No anxiety. No mood swings. Endocrine: No abnormal blood sugars. No weight change. No excessive sweating or thirst. No cold intolerance. SOCIAL HISTORY Patient was a smoker of 2-3 packs per day for 38 years and quit in 2004. No alcohol use, marijuana use or illicit drug use. Patient lives at home with her . She does not utilize cane or walker for ambulation. FAMILY HISTORY Mother in her 60s from coronary artery disease. Father in his 70s from prostate cancer. Patient's 3 brothers and one has passed from an overdose. Other brothers medical conditions are unknown. No sisters. Patient has 3 daughters and 1 son.. PHYSICAL EXAMINATION Gen: This is a 71-year-old female. Patient is sitting on the edge of the bed and appears to be in no acute distress. HEENT: Head is atraumatic, normocephalic. Pupils equal, round. Sclerae is anicteric. NECK: Supple. No JVD. No lymphadenopathy. No thyromegaly. LUNGS: Clear to auscultation. No wheezes or rhonchi. No intercostal retractions. HEART: Regular rate and rhythm. No murmur. ABDOMEN: Soft. Bowel sounds are present. No masses. No tenderness. EXTREMITIES: No pedal edema. No calf tenderness. NEUROLOGICAL: Patient is awake, alert and oriented x3. Uvula deviated to the left. Speech is slow and delayed, only 1 word answers. Right and upper or lower extremities are 4/5. Left extremities are 5/5. ASSESSMENT AND PLAN 1. Acute ischemic stroke of the left frontal parietal cortex. Continue aspirin 325 mg daily, Plavix 75 mg daily, Lipitor 80 mg at bedtime appreciated, PT, OT and speech therapies. 2. Hypertension. Continue amlodipine 5 mg daily. 3. Hyperlipidemia. Continue atorvastatin. 4. Gastroesophageal reflux disease. Continue Protonix 40 mg daily. 5. History of previous strokes as reported by the patient/ in 2004 and 2011. 6. Overactive bladder. Continue oxybutynin 10 mg daily. 7. Remote history of tobacco use and dependence. 8. DVT prophylaxis. 9. [ ]. 10. [ ]. 11. [ ]. 12. COVID-19 testing negative. Patient has been hospitalized during a pandemic. Patient will be admitted to the hospital for a minimum of 2 night stay. DISCHARGE PLAN [ ]. Impression and plan of care have been directed as dictated by the signing physician. Amalia Dupree nurse practitioner acting as scribe for signing physic gideon. 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 stroked 2011 History of Any Multi-Drug Resistant Organisms: None Reported Past Surgical History: Breast Surgery Additional Past Surgical History / Comment(s): breast biopsy Past Anesthesia/Blood Transfusion Reactions: No Reported Reaction Past Psychological History: No Psychological Hx Reported Smoking Status: Never smoker Past Alcohol Use History: None Reported Past Drug Use History: None Reported - Past Family History Mother Family Medical History: No Reported History Medications and Allergies Home Medications Medication Instructions Recorded Confirmed Type Atorvastatin Calcium [Lipitor] 10 mg PO DAILY 06/20/15 03/20/21 History amLODIPine BESYLATE [Norvasc] 5 mg PO DAILY 04/14/18 03/20/21 History Tolterodine ER [Detrol LA] 4 mg PO DAILY 10/14/18 03/20/21 History Aspirin EC [Ecotrin Low Dose] 81 mg PO DAILY 03/20/21 03/20/21 History Cetirizine HCl 10 mg PO DAILY 03/20/21 03/20/21 History Esomeprazole Magnesium [NexIUM] 80 mg PO DAILY 03/20/21 03/20/21 History Fluticasone Nasal [place] [Flonase 2 spray EA NOSTRIL DAILY PRN 03/20/21 03/20/21 History Nasal [place]] Allergies Allergy/AdvReac Type Severity Reaction Status Date / Time No Known Allergies Allergy Verified 03/20/21 09:43 Physical Exam Vitals: Vital Signs Temp Pulse Pulse Resp BP BP BP 03/20/21 08:10 97.8 F 84 18 141/67 03/20/21 06:15 97.0 F L 88 18 132/67 03/20/21 05:55 93 30 H 142/85 03/20/21 05:25 92 30 H 138/78 03/20/21 05:10 90 33 H 135/85 03/20/21 04:55 93 32 H 132/79 03/20/21 04:40 97.6 F 93 30 H 135/82 03/20/21 04:25 88 30 H 135/84 03/20/21 04:10 95 27 H 132/80 03/20/21 03:55 93 24 126/68 03/20/21 03:40 95 20 130/81 03/20/21 03:26 97.5 F L 98 18 130/83 Pulse Ox 03/20/21 08:10 94 L 03/20/21 06:15 96 03/20/21 05:55 97 03/20/21 05:25 96 03/20/21 05:10 97 03/20/21 04:55 95 03/20/21 04:40 95 03/20/21 04:25 94 L 03/20/21 04:10 92 L 03/20/21 03:55 91 L 03/20/21 03:40 92 L 03/20/21 03:26 93 L Intake and Output 03/19/21 03/20/21 03/20/21 22:59 06:59 14:59 Intake Total 30 Balance 30 Intake: Oral 30 Other: # Voids 0 Weight 108.4 kg Results CBC & Chem 7: 03/20/21 03:46 03/20/21 03:46 Labs: Abnormal Lab Results - Last 24 Hours (Table) 03/20/21 03/20/21 03/20/21 Range/Units 03:42 03:46 03:46 APTT 20.8 L (22.0-30.0) sec Chloride 108 H (98-107) mmol/L BUN 21 H (7-17) mg/dL Creatinine 1.06 H (0.52-1.04) mg/dL Glucose 190 H (74-99) mg/dL POC Glucose (mg/dL) 176 H (75-99) mg/dL
--- NOTE | 2021-03-20 15:04 | EEG ---
ELECTROENCEPHALOGRAM REPORT DATE OF SERVICE: 03/20/2021 CLINICAL HISTORY: This is a 71-year-old woman with history of stroke that presented with recurrent right- sided weakness. This video EEG is obtained to evaluate for seizure and epileptiform activity. RELEVANT MEDICATION: Patient is not on any antiepileptic drugs. EEG TYPE: A routine 21 channel EEG is performed with video using the 10/20 electrode placement system. DESCRIPTION: Wakefulness and drowsiness are obtained. During wakefulness, there is a posterior dominant rhythm of low to moderate voltage, reactive, well modulated, of 9 hertz activity. During drowsiness there is slowing and attenuation of the background activity. There is no physiological stage 2 sleep. There is no focal slowing. Interictal and ictal is none. ACTIVATION PROCEDURE: Photic stimulation did not evoke a posterior driving response. There is no abnormality during photic stimulation. Hyperventilation is not performed. CLINICAL INTERPRETATION: This is a normal routine EEG. There are no focal slowing, epileptiform discharges or seizure on the EEG. Clinical correlation is recommended. YUMIKO / MAICO: [id number] / CARLOS
[2021-03-20 18:03] LABS: Hemoglobin A1C 5.2 % (4.0-6.0)
[2021-03-20] MEDS ORDERED: ATORVASTATIN 10 MG TAB PO SCH (21:00)
[2021-03-20] MEDS: ATORVASTATIN 80 MG TAB PO SCH (21:30)
[2021-03-21] MEDS: SODIUM CHLORIDE 0.9% 1,000 ML IV SCH ×2 (01:00→11:31)
[2021-03-21] MEDS: PANTOPRAZOLE 40 MG TABLET PO SCH (07:13)
[2021-03-21] MEDS: ASPIRIN 325 MG TAB PO SCH (07:55)
[2021-03-21] MEDS: OXYBUTYNIN 10 MG TAB.ER.24 PO SCH (07:55)
[2021-03-21] MEDS: amLODIPine 5 MG TAB PO SCH (07:55)
[2021-03-21] MEDS: CLOPIDOGREL 75 MG TAB PO SCH (07:56)
[2021-03-21] MEDS: CHOLECALCIFEROL 25 MCG (1000 IU) TABLET PO SCH (07:56)
--- NOTE | 2021-03-21 08:01 | ECHOF ---
Referral Reason:stroke. Perform with bubble study MEASUREMENTS -------- HEIGHT: 157.5 cm WEIGHT: 108.0 kg BP: RVIDd: 2.9 cm (< 3.3) IVSd: 1.2 cm (0.6 - 1.1) LVIDd: 4.8 cm (3.9 - 5.3) LVPWd: 1.6 cm (0.6 - 1.1) IVSs: 1.3 cm LVIDs: 3.8 cm LVPWs: 1.8 cm LA Diam: 4.2 cm (2.7 - 3.8) Ao Diam: 3.7 cm (2.0 - 3.7) AV Cusp: 1.8 cm (1.5 - 2.6) MV EXCURSION: 16.226 mm (> 18.000) MV EF SLOPE: 53 mm/s (70 - 150) EPSS: 0.8 cm MV E Edgar: 0.29 m/s MV DecT: 307 ms MV A Edgar: 1.03 m/s MV E/A Ratio: 0.28 RAP: 5.00 mmHg RVSP: 14.20 mmHg FINDINGS -------- Sinus rhythm. This was a techncally difficult study with suboptimal views, , Lumason utilized for enhancement of im ages. LV size, wall thickness and systolic function are normal, with an EF greater than 55%. The left susana tricular size is normal. The right ventricle is normal in size. The left atrium is mildly dilated. The right atrial size is normal. Unable to perform bubble study: Due To TDS images. There is mild aortic valve sclerosis. There is no evidence of aortic regurgitation. Mild mitral regurgitation is present. Mild tricuspid regurgitation present. Right ventricular systolic pressure is normal at < 35 mmHg. The pulmonic valve was not well visualized. The aortic root size is normal. Echo free space represents a pericardial fat pad. CONCLUSIONS -------- 1. This was a techncally difficult study with suboptimal views, , Lumason utilized for enhancement of images. 2. LV size, wall thickness and systolic function are normal, with an EF greater than 55%. 3. The left ventricular size is normal. 4. The right ventricle is normal in size. 5. The left atrium is mildly dilated. 6. The right atrial size is normal. 7. Unable to perform bubble study: Due To TDS images. 8. There is mild aortic valve sclerosis. 9. Mild mitral regurgitation is present. 10. Mild tricuspid regurgitation present. 11. The pulmonic valve was not well visualized. 12. The aortic root size is normal. 13. Echo free space represents a pericardial fat pad. SENIOR PROJECT MANAGER ENGINEERING: Belgica Mike RDCS
[2021-03-21] MEDS: METOPROLOL TARTRATE 12.5 MG TAB PO SCH ×2 (12:08→20:04)
--- NOTE | 2021-03-21 12:58 | P.CRDCN ---
History of Present Illness History of present illness: HISTORY OF PRESENTING ILLNESS This is a pleasant 71-year-old female past medical history significant for hypertension, dyslipidemia, previous stroke (2004, 2011, and sometime in [facility] [id number] per patient), osteoarthritis. She follows in the office with Dr. Steven . We have been asked to see in consultation for CARLOS. Patient presented emergency department on 03/20/2021 with difficulty speaking and right sided weakness (arm, leg and facial). Early in the morning around 2 AM 03/20, patient woke up with right-sided weakness and having difficulty in her words out. Patient was brought to the emergency department by EMS. CT of the head is reported as old right frontal cortical infarct increased in size compared to old exam. There is a right parietal cortical infarct increased in size compared to old exam. No hemorrhage. CT angiography of the head and neck was reported as no significant intercranial and angiographic abnormality. Minimal plaque at the carotid artery bifurcation without evidence of hemodynamic stenosis. MRI of the brain revealed subacute CVA. EEG was normal. Echocardiogram revealed EF 55%, mild mesh regurgitation, tricuspid regurgitation. EKG revealed sinus rhythm, heart rate 95, no significant ST or T-wave abnormalities. Patient denies hi story of atrial fibrillation/flutter, DE, diabetes, coronary artery disease. She states she does not know what caused her prior strokes. Patient is currently being maintained on amlodipine 5 mg daily, aspirin 325 mg daily, atorvastatin 80 mg nightly, Plavix 75 mg daily, IV fluids 100ml/hr. DIAGNOSTICS Event Monitor report in 2016 reveals no atrial fibrillation noted. Lexiscan stress test 08/2018abnormal perfusion study with multiple defects. Reversible defect along the lateral wall especially the inferior lateral wall. Fixed defects in the inferior wall and anterior wall with preserved LV function., Mild hypokinesia of the inferior segment. Cardiac catheterization in 09/2018- normal coronary arteries, normal end diastolic pressure Telemetry tracings indicate sinus mechanism, heart rate 50 to 60s, no pauses, no atrial fibrillation noted. Chest xray pulmonary interstitial fibrosis, small areas of infiltrate in the lateral right upper lobe Laboratory reviewed, troponin negative 3, CBC unremarkable, sodium 142, potassium 4.1, BUN 21, serum creatinine 1.06, hemoglobin A1c 5.2, TSH 0.3, free T4 within normal limits, COVID-19 negative. REVIEW OF SYSTEMS At the time of my exam: CONSTITUTIONAL: Denies fever or chills. CARDIOVASCULAR: Denies chest pain, shortness of breath, orthopnea, PND or palpitations. RESPIRATORY: Denies cough. GASTROINTESTINAL: Denies abdominal pain, diarrhea, constipation, nausea or vomiting. MUSCULOSKELETAL: Denies myalgias. NEUROLOGIC: +right sided weakness, +aphasia, Denies numbness, tingling, headacbe ENDOCRINE: Denies fatigue, weight change, polydipsia or polyurina. GENITOURINARY: Denies burning, hematuria or urgency with micturation. HEMATOLOGIC: Denies history of anemia or bleeding. PHYSICAL EXAMINATION Blood pressure 125/78 heart rate 78 afebrile and maintaining oxygen saturation 95% on room air CONSTITUTIONAL: No apparent distress. HEENT: Head is normocephalic. Pupils are equal, round. Sclerae anicteric. Mucous membranes of the mouth are moist. No JVD. No carotid bruit. CHEST EXAMINATION: Lungs are clear to auscultation. No chest wall tenderness is noted on palpation or with deep breathing. HEART EXAMINATION: Regular rate and rhythm. S1, S2 heard. No murmurs, gallops or rub. ABDOMEN: Soft, nontender. Positive bowel sounds. EXTREMITIES: 2+ peripheral pulses, no lower extremity edema and no calf tenderness. NEUROLOGIC EXAMINATION: Patient is awake, alert and oriented x3. Right sided weakness in arm and right leg. ASSESSMENT Right-sided weakness, dysarthria and aphasia Subacute CVA History of 3 prior Strokes - per neurology seems possibly cardioembolic Hypertension Hyperlipidemia History of osteoarthritis PLAN We will plan for a CARLOS with Dr. Steven tomorrow NPO at midnight We will start metoprolol tartrate 12.5mg BID Rest of management per Neurology and Primary team We will discuss the need for heart monitor vs loop recorder Further recommendations based on clinical course Nurse Practitioner note has been reviewed, I agree with a documented findings and plan of care. Patient was seen and examined. 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 stroked 2011 History of Any Multi-Drug Resistant Organisms: None Reported Past Surgical History: Breast Surgery Additional Past Surgical History / Comment(s): breast biopsy Past Anesthesia/Blood Transfusion Reactions: No Reported Reaction Past Psychological History: No Psychological Hx Reported Smoking Status: Never smoker Past Alcohol Use History: None Reported Past Drug Use History: None Reported - Past Family History Mother Family Medical History: No Reported History Medications and Allergies Home Medications Medication Instructions Recorded Confirmed Type Atorvastatin Calcium [Lipitor] 10 mg PO DAILY 06/20/15 03/20/21 History amLODIPine BESYLATE [Norvasc] 5 mg PO DAILY 04/14/18 03/20/21 History Tolterodine ER [Detrol LA] 4 mg PO DAILY 10/14/18 03/20/21 History Aspirin EC [Ecotrin Low Dose] 81 mg PO DAILY 03/20/21 03/20/21 History Cetirizine HCl 10 mg PO DAILY 03/20/21 03/20/21 History Esomeprazole Magnesium [NexIUM] 80 mg PO DAILY 03/20/21 03/20/21 History Fluticasone Nasal [place] [Flonase 2 spray EA NOSTRIL DAILY PRN 03/20/21 03/20/21 History Nasal [place]] Allergies Allergy/AdvReac Type Severity Reaction Status Date / Time No Known Allergies Allergy Verified 03/20/21 09:43 Physical Exam Vitals: Vital Signs Temp Pulse Resp BP BP Pulse Ox 03/21/21 12:05 98.1 F 78 18 125/78 95 03/21/21 07:50 97.2 F L 77 18 127/66 94 L 03/21/21 05:53 97.9 F 18 94 L 03/21/21 04:00 97.9 F 76 18 130/60 94 L 03/21/21 02:00 77 18 03/21/21 00:00 98.0 F 77 18 108/68 94 L 03/20/21 20:00 98.0 F 86 18 116/48 96 03/20/21 16:11 98.7 F 76 18 132/58 97 03/20/21 16:03 95 Intake and Output 03/20/21 03/21/21 03/21/21 22:59 06:59 14:59 Intake Total 240 118 Balance 240 118 Intake: Oral 240 118 Other: Voiding Method Toilet Toilet Toilet # Voids 1 Weight 108.1 kg Results 03/20/21 03:46 03/20/21 03:46 Current Medications Generic Name Dose Route Start Last Admin Trade Name Leeroy PRN Reason Stop Dose Admin Amlodipine Besylate 5 mg 03/20/21 09:00 03/21/21 07:55 Amlodipine 5 Mg Tab PO 5 mg DAILY NAOMI Administration Aspirin 325 mg 03/21/21 09:00 03/21/21 07:55 Aspirin 325 Mg Tab PO 325 mg DAILY NAOMI Administration Atorvastatin Calcium 80 mg 03/20/21 21:00 03/20/21 21:30 Atorvastatin 80 Mg Tab PO Not Given HS NAOMI Cholecalciferol 25 mcg 03/20/21 09:00 03/21/21 07:56 Cholecalciferol 25 Mcg (1000 Iu) Tablet PO 25 mcg DAILY NAOMI Administration Clopidogrel Bisulfate 75 mg 03/20/21 09:15 03/21/21 07:56 Clopidogrel 75 Mg Tab PO 75 mg DAILY NAOMI Administration Sodium Chloride 1,000 mls @ 100 mls/hr 03/20/21 05:00 03/21/21 11:31 Saline 0.9% IV Not Given .Q10H NAOMI Metoprolol Tartrate 12.5 mg 03/21/21 11:15 03/21/21 12:08 Metoprolol Tartrate 12.5 Mg Tab PO 12.5 mg BID NAOMI Administration Oxybutynin Chloride 10 mg 03/20/21 09:00 03/21/21 07:55 Oxybutynin 10 Mg Tab.Er.24 PO 10 mg DAILY NAOMI Administration Pantoprazole Sodium 40 mg 03/20/21 07:30 03/21/21 07:13 Pantoprazole 40 Mg Tablet PO 40 mg [id number] NAOMI Administration Intake and Output 03/20/21 03/21/21 03/21/21 22:59 06:59 14:59 Intake Total 240 118 Balance 240 118 Intake: Oral 240 118 Other: Voiding Method Toilet Toilet Toilet # Voids 1 Weight 108.1 kg 03/20/21 03:46 03/20/21 03:46
--- NOTE | 2021-03-21 15:03 | P.PN ---
Subjective Progress Note Date: 03/21/21 HISTORY OF PRESENT ILLNESS This is a 71-year-old female patient of Dr. Foley with past medical history of hypertension, hyperlipidemia, remote history of tobacco use and dependence to previous strokes in 2004 and in 2011, gastroesophageal reflux disease. Patient developed difficulty with speech, difficulty getting her words out and right arm weakness that started yesterday. Noted also the patient is only answering yes or no to all questions and does not elaborate. Her states that this is the same symptoms as she had with her stroke in 2004 and symptoms eventually completely resolved. Patient came into [facility] emergency center for evaluation, she was afebrile, heart rate 98, blood pressure 130/83, pulse ox 93% on room air. CBC was unremarkable. INR 1.0. BUN 21 and creatinine 1.06. Blood sugar 190. Troponin negative on 3 draws. TSH 0.342 and free T4 1 0.16.Coronavirus PCR not detected. CT angiogram of the head and neck revealed no significant intracranial angiographic abnormality. Minimal plaque at the carotid artery bifurcations without evidence of hemodynamic stenosis. CAT scan of the brain revealed old right frontal cortical infarct increased in size compared on exam. Right parietal cortical infarct increased in size. No hemorrhage. MRI of the brain is consistent with subacute cerebral vascular accident. Chest x-ray reveals pulmonary interstitial fibrosis. Small area of infiltrate on her right lower lobe could be more extensive fibrosis. Similar change noted on lateral left lung base. No heart failure. Patient has been admitted to cardiac stepdown unit and seen in consultation by neurology., Speech therapy, PT and OT have been ordered as well as patient has been started on Plavix 75 mg daily, aspirin 325 mg daily, Lipitor increased from 40 mg to 80 mg at bedtime, EEG ordered. Therapies have recommended inpatient rehab and consult added for Dr. Bolaños 03/21: EEG was normal. Patient has been evaluated by speech therapy, physical and occupational therapy with recommendations for inpatient rehab. Social work is working on discharge planning. Patient has some improvement of her speech better able to speak in sentences but noticed they have been some slurred and delayed speech. Patient remains slightly weaker on the right side. Patient is scheduled for CARLOS tomorrow. Patient has been afebrile, heart rate 78, blood pressure 125/78, pulse ox 95% on room air. REVIEW OF SYSTEMS Constitutional: No fever, no chills, no night sweats. No weight change. No weakness, fatigue or lethargy. No daytime sleepiness. EENT: No headache. No blurred vision or double vision, no loss of vision. No loss of Hearing, no ringing in the ears, no dizziness. No nasal drainage or congestion. No epistaxis. No sore throat. Lungs: No shortness of breath, cough, no sputum production. No wheezing. Cardiovascular: No chest pain, no lower extremity edema. No palpitations. No p aroxysmal nocturnal dyspnea. No orthopnea. No lightheadedness or dizziness. No syncopal episodes. Abdominal: No abdominal pain. No nausea, vomiting. No diarrhea. No constipation. No bloody or tarry stools.. No loss of appetite. Genitourinary: No dysuria, increased frequency, urgency. No urinary retention. Musculoskeletal: No myalgias. No muscle weakness, no gait dysfunction, no frequent falls. No back pain. No neck pain. Integumentary: No wounds, no lesions. No rash or pruritus. No unusual bruising. No change in hair or nails. Neurologic: Reported aphasia. No facial droop. Reported change in mentation. No head injury. No headache. No paralysis. No paresthesia. Right-sided weakness. Psychiatric: No depression. No anxiety. No mood swings. Endocrine: No abnormal blood sugars. No weight change. No excessive sweating or thirst. No cold intolerance. PHYSICAL EXAMINATION Gen: This is a 71-year-old female. Patient is sitting on the edge of the bed and appears to be in no acute distress. HEENT: Head is atraumatic, normocephalic. Pupils equal, round. Sclerae is anicteric. NECK: Supple. No JVD. No lymphadenopathy. No thyromegaly. LUNGS: Clear to auscultation. No wheezes or rhonchi. No intercostal retractions. HEART: Regular rate and rhythm. No murmur. ABDOMEN: Soft. Bowel sounds are present. No masses. No tenderness. EXTREMITIES: No pedal edema. No calf tenderness. NEUROLOGICAL: Patient is awake, alert and oriented x3. Uvula deviated to the left. Speech is slow and delayed, only 1 word answers. Right and upper or lo wer extremities are 4/5. Left extremities are 5/5. ASSESSMENT AND PLAN 1. Acute ischemic stroke of the left frontal parietal cortex. Continue aspirin 325 mg daily, Plavix 75 mg daily, Lipitor 80 mg at bedtime appreciated, PT, OT and speech therapies. Consult with neurology appreciated. Patient is scheduled for CARLOS tomorrow. 2. Hypertension. Continue amlodipine 5 mg daily. 3. Hyperlipidemia. Continue atorvastatin. 4. Gastroesophageal reflux disease. Continue Protonix 40 mg daily. 5. History of previous strokes as reported by the patient/ in 2004 and 2011. 6. Overactive bladder. Continue oxybutynin 10 mg daily. 7. Remote history of tobacco use and dependence. 8. DVT prophylaxis. DISCHARGE PLAN Inpatient or subacute rehab tomorrow. Impression and plan of care have been directed as dictated by the signing phys ician. Amalia Dupree nurse practitioner acting as scribe for signing physician. Objective - Vital Signs Vital signs: Vital Signs Temp 97.2 F L 03/21/21 07:50 Pulse 77 03/21/21 07:50 Resp 18 03/21/21 07:50 BP 127/66 03/21/21 07:50 Pulse Ox 94 L 03/21/21 07:50 Intake & Output 03/20/21 03/21/21 03/21/21 18:59 06:59 18:59 Intake Total 440 118 Balance 440 118 Weight 108.1 kg Intake: Oral 440 118 Other: Voiding Method Toilet Toilet Toilet # Voids 1 1 - Labs CBC & Chem 7: 03/20/21 03:46 03/20/21 03:46 Labs: Abnormal Lab Results - Last 24 Hours (Table) 03/20/21 Range/Units 10:13 TSH 0.342 L (0.465-4.680) mIU/L
[2021-03-21 16:03] LABS: Chol/HDL Ratio 3.71
--- NOTE | 2021-03-21 18:06 | P.PN ---
Subjective Progress Note Date: 03/21/21 Patient seen at bedside and she feels like her right side is improving but not back to baseline. MRI of the brain is reported as finding consistent with subacute cerebral vascular accident that. There is restriction diffusion at the level of the convexity over the left at the frontal parietal cortex corresponding with hyperintensity and inversion recovery to weighted sequence. Additional chronic watershed infarct are again noted with associated Cleocin is noted on emerge in recovery to weighted sequence some scattered periventricular hypodensity are present on inversion recovery to add to weighted sequence. Per cardiology team, the patient had Event Monitor report in 2016 reveals no atrial fibrillation noted. "Lexiscan stress test 08/2018abnormal perfusion study with multiple defects. Reversible defect along the lateral wall especially the inferior lateral wall. Fixed defects in the inferior wall and anterior wall with preserved LV function., Mild hypokinesia of the inferior segment. Cardiac catheterization in 09/2018- normal coronary arteries, normal end diastolic pressure". Objective - Vital Signs Vital signs: Vital Signs Temp 98.3 F 03/21/21 16:20 Pulse 64 03/21/21 16:20 Resp 18 03/21/21 16:20 BP 126/72 03/21/21 16:20 Pulse Ox 92 L 03/21/21 16:20 Intake & Output 03/20/21 03/21/21 03/21/21 18:59 06:59 18:59 Intake Total 440 848 Balance 440 848 Weight 108.1 kg Intake: Oral 440 848 Other: Voiding Method Toilet Toilet Toilet # Voids 1 1 - Exam GENERAL: The patient is lying in bed and is not in acute distress. NEUROLOGICAL: Higher mental function: The patient is awake, alert, oriented to self, place and time. Patient is following simple and complex commands. Has subtle broca aphasia. No neglect. Cranial nerves: The pupils are round, equal and reactive to light and accommodation. Visual skaggs are full to confrontation throughout. Extraocular movement is intact no nystagmus is noted. Facial sensation is normal to touch throughout. The facial strength is right nasolabial flattening. Hearing is normal bilaterally to hand rub. Tongue is midline and moved [id number] without any difficulty. Mild dysarthria is noted. Shoulder shrug is normal bilaterally. Motor: Gait is deferred. The strength is 4+/5 over the right side. Right hand application systems engineer is 5-. Otherwise 5 over 5 throughout. Has slight increase tone over the right elbow, hand and knee. Normal bulk. Sensation: Sensation is normal to touch throughout. Reflexes (right/left): 3+ over the right side while 2+ over the left side Plantars are upgoing bilaterally. - Labs CBC & Chem 7: 03/20/21 03:46 03/20/21 03:46 Assessment and Plan Assessment: This is a 71-year-old women who presented emergency department on 03/20/2021 for right-sided weakness as well as difficulty getting her words out with slurring of the speech. Last normal was 7 PM that was seen by the patient's . Around 11 PM and was felt that the patient was off by her grandchild. Around 2:20 AM on 03/20/2021. patient noticed that the she had neurological deficits. Patient did not receive IV TPA since outside the window. * Subacute ischemic stroke over the left fronto/parietal region (with symptoms of right-sided weakness, dysarthria and broca aphasia). Her stroke seem embolic. * History of stroke in 2004 and 2011 with transient right sided weakness, aphasia and dysarthria (last MRI brain in 2017 shows old right frontal and parietal stroke and left/frontoparietal. Upon reviewing it I felt there is scattered foci over the bilateral cerebellar region). Seems possibly cardioembolic. * Hypertension * Hyperlipidemia * History of Osteoarthritis Plan: * CT of the head is reported as old right frontal cortical infarct increased in size compared to old exam. There is a right parietal cortical infarct increased in size compared to old exam. No hemorrhage. The previous the comparison was the N 2011. * CT angiography of the head and neck was reported as no significant intercranial and angiographic abnormality. Minimal plaque at the carotid artery bifurcation without evidence of hemodynamic stenosis. * I don't think the current CT of the head is any worse then the MRI of the brain in 2017 regarding the finding over the right frontal parietal region. I don't have access to the previous CT of the head the in 2011. * MRI of the brain is reported as finding consistent with subacute cerebral vascular accident that. There is restriction diffusion at the level of the convexity over the left at the frontal parietal cortex corresponding with hyperintensity and inversion recovery to weighted sequence. Additional chronic watershed infarct are again noted with associated Cleocin is noted on emerge in recovery to weighted sequence some scattered periventricular hypodensity are present on inversion recovery to add to weighted sequence. * 2-D echo was reported as technically difficult study with suboptimal views. Left ventricular size with ejection fraction greater than 55%. Left atrium is mildly dilated. Unable to perform bubble study. * Routine EEG on 03/20/2021 is normal. There are no focal slowing, epileptiform discharges or seizure on the EEG. * LDL is triglyceride of 1:30, cholesterol is 152, LDLs 85 and HDL 41. LDL goal and strokes is less than 70. * TSH is 0.342 which is low but the free T4 is 1.16 which is considered within normal limits. * Hemoglobin A1c is 5.2 which is considered within normal limits * Continue Aspirin 325mg daily (home dose) and Plavix 75mg daily (added during h ospital stay). Continue Lipitor 80mg qhs for secondary stroke prophylaxis. * Cardiology is consulted for a CARLOS. Recommend an event monitor or even loop recorder and to follow-up with cardiology. Per cardiology she had an event monitor in 2016 and did not reveal atrial fibrillation. * PT, OT and SWITCH ENGINEER are consulted. * Contiue neuro checks and continue cardiac monitoring. Telemetry tracing indicate sinus rhythm and no atrial fibrillation or flutter. * We'll defer the rest of the medical management to the primary team. The plan is discussed with the patient and her her family members (her nieces w ho are at bedside). Nakul Wilkes M.D. Neuro-hospitalist Time with Patient: Less than 30
[2021-03-21] MEDS: ATORVASTATIN 80 MG TAB PO SCH (20:04)
[2021-03-22] MEDS: PANTOPRAZOLE 40 MG TABLET PO SCH (06:52)
[2021-03-22 07:26] LABS: Calcium 8.9 mg/dL (8.4-10.2); Potassium 3.9 mmol/L (3.5-5.1)
[2021-03-22] MEDS ORDERED: IV FLUID CONTINUATION 1,000 ML IV ONE (08:48)
[2021-03-22] MEDS ORDERED: fentaNYL (PF) 50 MCG/ML 2 ML AMP ONE (08:53)
[2021-03-22] MEDS: BENZOCAINE SPRAY 1 CAN MUCOUS MEM ONE ×2 (09:13→09:28)
[2021-03-22] MEDS: MIDAZOLAM 2 MG/2 ML VIAL IVP ONE ×2 (09:31→09:33)
[2021-03-22] MEDS ORDERED: fentaNYL (PF) 50 MCG/ML 2 ML AMP IVP ONE (09:31)
[2021-03-22 10:58] VITALS: TEMP 98.6
--- NOTE | 2021-03-22 11:13 | P.PN ---
Subjective This is a pleasant 71-year-old female past medical history significant for hypertension, dyslipidemia, previous stroke (2004, 2011, and sometime in between [id number] per patient), osteoarthritis. She follows in the office with Dr. Steven . We have been asked to see in consultation for CARLOS. Metoprolol tartrate was started yesterday 03/21. Patient not at bedside at time she went down for CARLOS today with Dr. Steven. Telemetry reviewed, patient with episodes of sinus bradycardia, heart rate 30-40s. Patient currently maintained on metoprolol tartrate 12.5 mg twice a day, aspirin 325 mg daily, amlodipine 5 mg daily, atorvastatin 80 mg nightly, Plavix 75 mg daily ASSESSMENT Right-sided weakness, dysarthria and aphasia Subacute CVA History of 3 prior Strokes - per neurology seems possibly cardioembolic Hypertension Hyperlipidemia History of osteoarthritis PLAN CARLOS this morning with Dr. Steven Stop metoprolol tartrate Rest of management per Neurology and Primary team Further recommendations based on clinical course. Nurse Practitioner note has been reviewed, I agree with a documented findings and plan of care. Patient was seen and examined. Objective - Vital Signs Vital signs: Vital Signs Temp 98.6 F 03/22/21 08:00 Pulse 80 03/22/21 09:46 Resp 16 03/22/21 09:46 BP 133/73 03/22/21 09:46 Pulse Ox 94 L 03/22/21 09:46 Intake & Output 03/21/21 03/22/21 03/22/21 18:59 06:59 18:59 Intake Total 848 50 Balance 848 50 Weight 106.3 kg Intake: IV 50 Oral 848 Other: Voiding Method Toilet Toilet Toilet # Voids 2 1 - Labs CBC & Chem 7: 03/20/21 03:46 03/22/21 06:40 Labs: Abnormal Lab Results - Last 24 Hours (Table) 03/22/21 Range/Units 06:40 Chloride 110 H (98-107) mmol/L BUN 24 H (7-17) mg/dL Glucose 113 H (74-99) mg/dL
[2021-03-22] MEDS: amLODIPine 5 MG TAB PO SCH (11:22)
[2021-03-22] MEDS: CHOLECALCIFEROL 25 MCG (1000 IU) TABLET PO SCH (11:22)
[2021-03-22] MEDS: OXYBUTYNIN 10 MG TAB.ER.24 PO SCH (11:22)
[2021-03-22] MEDS: CLOPIDOGREL 75 MG TAB PO SCH (11:22)
[2021-03-22] MEDS: ASPIRIN 325 MG TAB PO SCH (11:22)
--- NOTE | 2021-03-22 12:23 | P.DS ---
Providers Date of admission: 03/20/21 04:52 Expected date of discharge: 03/22/21 Attending physician: Tisha Ortega Consults: 03/20/21 04:54 Consult Physician Urgent Consulting Provider: Nakul Wilkes Consult Reason/Comments: Acute ischemic stroke Do you want consulting provider notified?: Yes 03/20/21 17:52 Consult Physician Routine Consulting Provider: Bianka Scruggs Consult Reason/Comments: CARLOS. Recent acute/sub stroke with hx of recurrent stroke. Do you want consulting provider notified?: Yes Primary care physician: Kar Foley [facility] Course: HISTORY OF PRESENT ILLNESS This is a 71-year-old female patient of Dr. Foley with past medical history of hypertension, hyperlipidemia, remote history of tobacco use and dependence to previous strokes in 2004 and in 2011, gastroesophageal reflux disease. Patient developed difficulty with speech, difficulty getting her words out and right arm weakness that started yesterday. Noted also the patient is only answering yes or no to all questions and does not elaborate. Her states that this is the same symptoms as she had with her stroke in 2004 and symptoms eventually completely resolved. Patient came into [facility] emergency center for evaluation, she was afebrile, heart rate 98, blood pressure 130/83, pulse ox 93% on room air. CBC was unremarkable. INR 1.0. BUN 21 and creatinine 1.06. Blood sugar 190. Troponin negative on 3 draws. TSH 0.342 and free T4 1 0.16.Coronavirus PCR not detected. CT angiogram of the head and neck revealed no significant intracranial angiographic abnormality. Minimal plaque at the carotid artery bifurcations without evidence of hemodynamic stenosis. CAT scan of the brain revealed old right frontal cortical infarct increased in size compared on exam. Right parietal cortical infarct increased in size. No hemorrhage. MRI of the brain is consistent with subacute cerebral vascular accident. Chest x-ray reveals pulmonary interstitial fibrosis. Small area of infiltrate on her right lower lobe could be more extensive fibrosis. Similar change noted on lateral left lung base. No heart failure. Patient has been admitted to cardiac stepdown unit and seen in consultation by neurology., Speech therapy, PT and OT have been ordered as well as patient has been started on Plavix 75 mg daily, aspirin 325 mg daily, Lipitor increased from 40 mg to 80 mg at bedtime, EEG ordered. Therapies have recommended inpatient rehab and consult added for Dr. Bolaños 03/21: EEG was normal. Patient has been evaluated by speech therapy, physical and occupational therapy with recommendations for inpatient rehab. Social work is working on discharge planning. Patient has some improvement of her speech better able to speak in sentences but noticed they have been some slurred and delayed speech. Patient remains slightly weaker on the right side. Patient is scheduled for CARLOS tomorrow. Patient has been afebrile, heart rate 78, blood pressure 125/78, pulse ox 95% on room air. 03/22: Patient underwent CARLOS this morning which verbal report is mitral valve regurgitation and small PFO with plan for medical management. Formal report is not available. Patient had episodes of bradycardia down into the 30s and 40s and metoprolol was discontinued today. Her neurological status continues to improve slowly. Speech is improved as well as right-sided weakness. Patient has been afebrile, heart rate 80, blood pressure 133/73, pulse ox 94% on 2 L nasal cannula. Sodium 142, potassium 3.9, chloride 110, CO2 27, BUN 24 and creatinine 0.87. Blood sugar 113. Triglycerides 130, cholesterol 152, LDL 85 and HDL 41. Neurology recommends continuing on aspirin 325 mg daily, Plavix 75 mg daily, Lipitor 80 mg daily. They have also recommended an event monitor. Patient will be discharged to [facility] for inpatient rehab today in stable condition. ASSESSMENT AND PLAN 1. Acute ischemic stroke of the left frontal parietal cortex. 2. Hypertension. 3. Hyperlipidemia. 4. Gastroesophageal reflux disease. 5. History of previous strokes as reported by the patient/ in 2004 and 2011. 6. Overactive bladder. 7. Remote history of tobacco use and dependence. DISCHARGE PLAN Inpatient rehab. Impression and plan of care have been directed as dictated by the signing physician. Amalia Dupree nurse practitioner acting as scribe for signing physician. Patient Condition at Discharge: Good Plan - Discharge Summary Discharge Rx Participant: No New Discharge Prescriptions: No Action Atorvastatin Calcium [Lipitor] 10 mg PO DAILY amLODIPine BESYLATE [Norvasc] 5 mg PO DAILY Tolterodine ER [Detrol LA] 4 mg PO DAILY Aspirin EC [Ecotrin Low Dose] 81 mg PO DAILY Cetirizine HCl 10 mg PO DAILY Fluticasone Nasal [place] [Flonase Nasal [place]] 2 spray EA NOSTRIL DAILY PRN PRN Reason: Allergy Symptoms Esomeprazole Magnesium [NexIUM] 80 mg PO DAILY Discharge Medication List Atorvastatin Calcium [Lipitor] 10 mg PO DAILY 06/20/15 [History] amLODIPine BESYLATE [Norvasc] 5 mg PO DAILY 04/14/18 [History] Tolterodine ER [Detrol LA] 4 mg PO DAILY 10/14/18 [History] Aspirin EC [Ecotrin Low Dose] 81 mg PO DAILY 03/20/21 [History] Cetirizine HCl 10 mg PO DAILY 03/20/21 [History] Esomeprazole Magnesium [NexIUM] 80 mg PO DAILY 03/20/21 [History] Fluticasone Nasal [place] [Flonase Nasal [place]] 2 spray EA NOSTRIL DAILY PRN 03/20/21 [History] Follow up Appointment(s)/Referral(s): Kar Foley DO [Primary Care Provider] - 1-2 days
[2021-03-22 14:34] VITALS: PULSE 74; RESP 18
[2021-03-22 14:36] VITALS: BP 115/57
--- NOTE | 2021-03-22 19:20 | P.PN ---
Subjective Progress Note Date: 03/22/21 Patient was seen at bedside and she is accompanied by family members and the he stated she is a somewhat better today compared to the to yesterday and much better than her initial presentation but continues to have the deficits over the right side that. Denies any new knowledge goal deficits. She is scheduled for CARLOS today in the morning. Objective - Vital Signs Vital signs: Vital Signs Temp 98.6 F 03/22/21 08:00 Pulse 74 03/22/21 10:20 Resp 18 03/22/21 10:20 BP 115/57 03/22/21 11:05 Pulse Ox 93 L 03/22/21 10:20 Intake & Output 03/22/21 03/22/21 03/23/21 06:59 18:59 06:59 Intake Total 290 Balance 290 Weight 106.3 kg Intake: IV 50 Oral 240 Other: Voiding Method Toilet Toilet # Voids 1 - Exam GENERAL: The patient is lying in bed and is not in acute distress. NEUROLOGICAL: Higher mental function: The patient is awake, alert, oriented to self, place and time. Patient is following simple and complex commands. Has subtle broca aphasia. No neglect. Cranial nerves: The pupils are round, equal and reactive to light and accommodation. Visual skaggs are full to confrontation throughout. Extraocular movement is intact no nystagmus is noted. Facial sensation is normal to touch throughout. The facial strength is right nasolabial flattening. Hearing is normal bilaterally to hand rub. Tongue is midline and moved [id number] without any difficulty. Mild dysarthria is noted. Shoulder shrug is normal bilaterally. Motor: Gait is deferred. The strength is 4+/5 over the right side. Right hand chin strap sewer is 5-. Otherwise 5 over 5 throughout. Has slight increase tone over the right elbow, hand and knee. Normal bulk. Sensation: Sensation is normal to touch throughout. Reflexes (right/left): 3+ over the right side while 2+ over the left side Plantars are upgoing bilaterally. - Labs CBC & Chem 7: 03/20/21 03:46 03/22/21 06:40 Labs: Abnormal Lab Results - Last 24 Hours (Table) 03/22/21 Range/Units 06:40 Chloride 110 H (98-107) mmol/L BUN 24 H (7-17) mg/dL Glucose 113 H (74-99) mg/dL Assessment and Plan Assessment: This is a 71-year-old women who presented emergency department on 03/20/2021 for right-sided weakness as well as difficulty getting her words out with slurring of the speech. Last normal was 7 PM that was seen by the patient's . Around 11 PM and was felt that the patient was off by her grandchild. Around 2:20 AM on 03/20/2021. patient noticed that the she had neurological deficits. Patient did not receive IV TPA since outside the window. * Subacute ischemic stroke over the left fronto/parietal region (with symptoms of right-sided weakness, dysarthria and broca aphasia). Her stroke seem embolic. * History of stroke in 2004 and 2011 with transient right sided weakness, aphasia and dysarthria (last MRI brain in 2017 shows old right frontal and parietal stroke and left/frontoparietal. Upon reviewing it I felt there is scattered foci over the bilateral cerebellar region). Seems possibly cardioembolic. * Hypertension * Hyperlipidemia * History of Osteoarthritis Plan: * CT of the head is reported as old right frontal cortical infarct increased in size compared to old exam. There is a right parietal cortical infarct increased in size compared to old exam. No hemorrhage. The previous the comparison was the N 2011. * CT angiography of the head and neck was reported as no significant intercranial and angiographic abnormality. Minimal plaque at the carotid artery bifurcation without evidence of hemodynamic stenosis. * I don't think the current CT of the head is any worse then the MRI of the brain in 2017 regarding the finding over the right frontal parietal region. I don't have access to the previous CT of the head the in 2011. * MRI of the brain is reported as finding consistent with subacute cerebral vascular accident that. There is restriction diffusion at the level of the convexity over the left at the frontal parietal cortex corresponding with hyperintensity and inversion recovery to weighted sequence. Additional chronic watershed infarct are again noted with associated Cleocin is noted on emerge in recovery to weighted sequence some scattered periventricular hypodensity are present on inversion recovery to add to weighted sequence. * 2-D echo was reported as technically difficult study with suboptimal views. Left ventricular size with ejection fraction greater than 55%. Left atrium is mildly dilated. Unable to perform bubble study. * Routine EEG on 03/20/2021 is normal. There are no focal slowing, epileptiform discharges or seizure on the EEG. * LDL is triglyceride of 1:30, cholesterol is 152, LDLs 85 and HDL 41. LDL goal and strokes is less than 70. * TSH is 0.342 which is low but the free T4 is 1.16 which is considered within normal limits. * Hemoglobin A1c is 5.2 which is considered within normal limits * Continue Aspirin 325mg daily (home dose) and Plavix 75mg daily (added during hospital stay). Continue Lipitor 80mg qhs for secondary stroke prophylaxis. * Cardiology is consulted for a CARLOS and is schedule for one in the morning. Recommend an event monitor or even loop recorder and to follow-up with cardiology. Per cardiology she had an event monitor in 2016 and did not reveal atrial fibrillation. * PT, OT and DATA ANALYTICS DEVELOPER are consulted. * Contiue neuro checks and continue cardiac monitoring. Telemetry tracing indicate sinus rhythm and no atrial fibrillation or flutter. * We'll defer the rest of the medical management to the primary team. * If CARLOS is negative then recommend, no further work-up. She needs to follow-up with a neurologist and electronic calibration technician within 1-2 weeks. The plan is discussed with the patient and her her family members. Nakul Wilkes M.D. Neuro-hospitalist Time with Patient: Less than 30
[2021-04-06] MEDS ORDERED: RX INFO: IV CONTRAST WAS GIVEN 1 EACH MISC MISCELLANE PRN (09:52)
[2021-04-06] MEDS ORDERED: SODIUM CHLORIDE 0.9% 1,000 ML IV SCH (10:00)
--- NOTE | 2021-05-01 09:02 | ECHOT ---
Indications for Procedure(s): Rule out Cardec source of emboli Preoperative Diagnosis: 03/22/2021 Postoperative Diagnosis: Related to arrival bubbles in the left atrium may be suggestive of PFO. No clot in the left atrial appendage Description of Procedure(s): INDICATION: This is a 71-year-old female with history of recurrent TIAs was admitted to the hospital with another episode of TIA. A CARLOS examination is requested to rule out Cardec source of emboli CONSENT: . Informed verbal consent was obtained from the patient PROCEDURE: Patient was brought to the lab in a fasting state. She was prepped and draped in the usual fashion. She was given a total of 2 mg of Versed and 50 g of fentanyl for sedation. A lubricated Omni probe was introduced in the oropharynx was advanced into the esophagus. Multiple views were obtained both from stomach and esophagus. Color, pulsed and continuous Doppler studies were done. Saline contrast bubble Injection was performed. Patient tolerated the procedure well. No immediate complications FINDINGS: . The aortic valve is tricuspid and function normally. Mitral valve appeared to be normal with a central regurgitation which appear be moderate and 2+. No reversal of flow in the pulmonary veins. No clot in the left atrial appendage. Left ankle function is normal. Injection of the saline contrast Gray showed arrival of few bubbles after 6 cycles. May suggest a small PFO. No spontaneous she noted across the interatrial septum. There is mild tricuspid regurgitation. It appears to be mild plaque in the aorta IMPRESSION: #1. No clot in the left atrial appendage #2. A few late arriving bubbles in the left atrium during saline contrast injection, may suggest small shunt #3. Moderate mitral regurgitation #4. Mild tricuspid regurgitation. #6. Preserved LV function. #7. Mild proximal aorta PLAN: Continue medical therapy. Continue investigation for any other causes TIA. [facility]
== END 2021-03-22 15:29 | DRG 65 ==
LOC: EC 03:23 → 3SCARD 04:52
PROVIDERS: ADMIT Family Medicine; ATTEND Family Medicine
PROC: B24BZZ4 Ultrasonography of Heart with Aorta, Transesophageal (ICD-10-PCS; principal; 2021-03-22 09:15)
DX: I63.89 Other cerebral infarction (principal); G81.91 Hemiplegia, unspecified affecting right dominant side; Q21.1 Atrial septal defect; J84.10 Pulmonary fibrosis, unspecified; Z20.822 Contact with and (suspected) exposure to COVID-19; R47.01 Aphasia; R47.1 Dysarthria and anarthria; R29.701 NIHSS score 1; I10 Essential (primary) hypertension; I08.1 Rheumatic disorders of both mitral and tricuspid valves; E78.5 Hyperlipidemia, unspecified; R00.1 Bradycardia, unspecified; K21.9 Gastro-esophageal reflux disease without esophagitis; N32.81 Overactive bladder; M19.90 Unspecified osteoarthritis, unspecified site; Z79.82 Long term (current) use of aspirin; Z79.899 Other long term (current) drug therapy; Z86.73 Personal history of transient ischemic attack (TIA), and cerebral infarction without residual deficits; Z87.891 Personal history of nicotine dependence; Z87.2 Personal history of diseases of the skin and subcutaneous tissue; Z98.890 Other specified postprocedural states; Z82.49 Family history of ischemic heart disease and other diseases of the circulatory system; Z80.42 Family history of malignant neoplasm of prostate; Z81.4 Family history of other substance abuse and dependence
CPT/HCPCS: 36415; 70450; 70496; 70498; 70551; 71045; 80048; 80053; 80061; 83036; 84439; 84443; 84484; 85025; 85610; 85730; 87635; 93005; 93306; 94760; 95819; 99291

== ENCOUNTER → 2021-05-04 | Outpatient (CLI) | payer MEDICARE, OTHER ==
[2021-05-04 13:15] LABS: Partial Thromboplastin Time 23.3 sec (22.0-30.0); Prothrombin Time 10.4 sec (9.0-12.0)
[2021-05-04 21:38] LABS: Cardiolipin Ab IgG Interp NEGATIVE (NEGATIVE); Cardiolipin Ab IgM Interp NEGATIVE (NEGATIVE); Cardiolipin IgA Antibody <2.0 U/mL; Cardiolipin IgM Antibody <1.5 U/mL
[2021-05-05 11:56] LABS: APTT 41 Sec(s) (<43); DRVVT 1:1 Mix 40 Sec(s) (<44); Dilute Russell Viper Venom 46 Sec(s) (<44)
== END | disposition home or self-care (01) ==
LOC: LABWHC1 11:44
PROVIDERS: ATTEND Psychiatry & Neurology Neurology
DX: Z01.812 Encounter for preprocedural laboratory examination (principal)
CPT/HCPCS: 36415; 80051; 82565; 83090; 84520; 85025; 85610; 85613; 85730; 86147

== ENCOUNTER → 2021-05-04 | Outpatient (CLI) | payer MEDICARE, OTHER ==
[2021-05-04 13:02] LABS: Basophils % (A) 0 %; Eosinophils # (A) 0.2 k/uL (0-0.7); Eosinophils % (A) 2 %; HCT 41.6 % (34.0-46.0); Lymphocytes # (A) 2.4 k/uL (1.0-4.8); Lymphocytes % (A) 35 %; MCH 32.6 pg (25.0-35.0); MCHC 33.7 g/dL (31.0-37.0); MCV 96.6 fL (80.0-100.0); Mean Platelet Volume 7.4; Monocytes # (A) 0.3 k/uL (0-1.0); Monocytes % (A) 5 %; Neutrophils # (A) 3.9 k/uL (1.3-7.7); Neutrophils % (A) 57 %; Platelet Count 150 k/uL (150-450); RDW 14.9 % (11.5-15.5); WBC 6.8 k/uL (3.8-10.6)
[2021-05-04 13:12] LABS: Potassium 5.1 mmol/L (3.5-5.1)
== END | disposition home or self-care (01) ==
LOC: LABPAT 11:42
PROVIDERS: ATTEND Internal Medicine Cardiovascular Disease
DX: Z01.812 Encounter for preprocedural laboratory examination (principal)
CPT/HCPCS: 80051; 82565; 84520; 85025

== ENCOUNTER 2021-05-11 06:08 | Day surgery (SDC) | payer MEDICARE, OTHER ==
[2021-05-09 15:38] VITALS: BMI 36.9
[~2021-05-11 06:08] MED LIST changes: -ALPRAZolam 0.25 MG TAB PO PRN; -ALPRAZolam 0.5 MG TAB PO PRN; -ASPIRIN 325 MG TAB PO STA; -ATORVASTATIN 80 MG TAB PO STA; -NITROGLYCERIN SL TABS 0.4 MG TAB SUBLINGUAL PRN; +SODIUM CHLORIDE 0.9% 1,000 ML IV SCH; -SODIUM CHLORIDE 0.9% 1,000 ML in EMPTY BAG 1 BAG IV ONE
[2021-05-11] MEDS ORDERED: SODIUM CHLORIDE 0.9% 500 ML 500 ML IV ONE (06:36)
[2021-05-11 07:02] VITALS: RESP 16; TEMP 97.9
[2021-05-11] MEDS ORDERED: MIDAZOLAM 2 MG/2 ML VIAL IV ONE (08:00)
[2021-05-11] MEDS ORDERED: LIDOCAINE 1% INJ 10MG/ML (20 ML MDV) SQ ONE (08:01)
[2021-05-11] MEDS ORDERED: ACETAMINOPHEN TAB 325 MG TAB PO PRN (08:14)
--- NOTE | 2021-05-11 08:18 | P.PCN ---
Date of Procedure: 05/11/21 Preoperative Diagnosis: Cryptogenic stroke Postoperative Diagnosis: The same Procedure(s) Performed: Insertion of the loop recorder Description of Procedure: Patient was brought to the lab in a fasting state. She was prepped and draped in the usual fashion. Patient was given 1 mg of Versed for sedation. The skin over the upper third intercostal space was infiltrated with lidocaine. An incision was made in the skin and the loop recorder was inserted without any difficulty. Satisfactory thresholds were obtained. Standard programming is performed. Final impression: Successful implantation of loop recorder
[2021-05-11 08:44] VITALS: BP 128/67; PULSE 64
== END 2021-05-11 08:58 | disposition home or self-care (01) ==
LOC: CATHEP 06:08
PROVIDERS: ATTEND Internal Medicine Cardiovascular Disease
DX: I63.9 Cerebral infarction, unspecified (principal)
CPT/HCPCS: 33285; C1764; J2250; J0690; J2001

== ENCOUNTER → 2021-10-17 | Outpatient (CLI) | payer MEDICARE, OTHER ==
--- NOTE | 2021-10-17 15:06 | NM ---
EXAMINATION TYPE: NM hepatobiliary w EF DATE OF EXAM: 10/17/2021 COMPARISON: NONE HISTORY: Right upper quadrant pain TECHNIQUE: After the intravenous administration of 5.1 mCi Tc 99m Mebrofenin hepatobiliary scintigrap hy is performed. Immediate images post injection. FINDINGS: There is satisfactory initial accumulation of tracer by the liver. The gallbladder is visualized wit hin 35 minutes. The small bowel activity is noted within 20 minutes. At one hour 8 ounces of oral e nsure plus is given to mimic CCK and gallbladder ejection fraction is calculated at 85 %, not deviate d from the normal range. Therefore there is no scintigraphic evidence of cystic or common bile duct obstruction to suggest acute cholecystitis or gallbladder hypokinesia. IMPRESSION: Ejection fraction is 85%, not deviated from the normal range.
== END | disposition home or self-care (01) ==
LOC: RADNMMAIN 12:36
PROVIDERS: ATTEND Family Medicine
DX: K80.00 Calculus of gallbladder with acute cholecystitis without obstruction (principal)
CPT/HCPCS: 78226; A9537

== ENCOUNTER → 2023-11-20 | Outpatient (CLI) | payer MEDICARE, OTHER ==
[2023-11-20 16:27] LABS: ALT 27 U/L (8-44); AST 15 U/L (13-35); Chol/HDL Ratio 2.61 Ratio; LDL Cholesterol,Calculated 66.7 mg/dL (0.0-131.0)
== END | disposition home or self-care (01) ==
LOC: LABWHC1 08:35
PROVIDERS: ATTEND Internal Medicine Cardiovascular Disease
DX: E78.2 Mixed hyperlipidemia (principal)
CPT/HCPCS: 36415; 80061; 84450; 84460

== ENCOUNTER 2025-03-16 02:34 | Inpatient (IN) | payer MEDICARE, OTHER ==
--- NOTE | 2025-03-16 03:11 | ED ---
SOB HPI - General Chief Complaint: Shortness of Breath Stated Complaint: weakness DEVYN Time Seen by Provider: 03/16/25 02:47 Source: patient Mode of arrival: wheelchair Limitations: no limitations - History of Present Illness Initial Comments: This patient is 75-year-old woman who presents with a constellation of symptoms that had come on over the course of the day. She states that she started did not feel like her usual self in the morning. She was noting some back and chest pain. It had come on before noon. She describes the pain as being in the midline, she cannot characterize it well. She states that it was not very severe so she did not come in for that. Over the course of the day she also was having generalized weakness and she is feeling short of breath. She has not noted fever, but she has been feeling cold this evening. No productive cough. MD Complaint: shortness of breath Onset/Timin -: days(s) Radiation: back Severity: mild Consistency: intermittent Improves With: nothing Worsens With: nothing Known History Of: congestive heart failure Associated Symptoms: chest pain Treatments Prior to Arrival: none - Related Data Home Medications Medication Instructions Recorded Confirmed amLODIPine BESYLATE [Norvasc] 5 mg PO DAILY 04/14/18 03/16/25 Tolterodine ER [Detrol LA] 4 mg PO DAILY 10/14/18 03/16/25 Cholecalciferol [Vitamin D3 (25 25 mcg PO DAILY 02/03/22 03/16/25 Mcg = 1000 Iu)] Bumetanide [BUMEX] 1 mg PO DAILY 03/16/25 03/16/25 Cyanocobalamin (Vitamin B-12) 1,000 mcg PO DAILY 03/16/25 03/16/25 [Vitamin B-12] Folic Acid 0.4 mg PO DAILY 03/16/25 03/16/25 Ipratropium-Albuterol Nebulize 3 ml INHALATION RT-QID PRN 03/16/25 03/16/25 [Duoneb 0.5 mg-3 mg/3 ml Soln] Omeprazole 40 mg PO BID 03/16/25 03/16/25 Potassium Chloride ER [K-Dur 20] 20 meq PO DAILY 03/16/25 03/16/25 Rosuvastatin [Crestor] 20 mg PO HS 03/16/25 03/16/25 Previous Rx's Medication Instructions Recorded Apixaban [Eliquis] 5 mg PO BID #60 tab 02/06/22 Amoxic-Pot Clav 875-125Mg 1 tab PO Q12HR 6 Days #12 tab 03/19/25 [Augmentin 875-125] L.acidoph,Paracasei, B.lactis 1 each PO DAILY 30 Days #30 capsule 03/19/25 [Probiotic] Allergies Allergy/AdvReac Type Severity Reaction Status Date / Time No Known Allergies Allergy Verified 03/16/25 11:22 Review of Systems ROS Statement: Those systems with pertinent positive or pertinent negative responses have been documented in the HPI. ROS Other: All systems not noted in ROS Statement are negative. Constitutional: Reports: chills, weakness. Denies: fever Respiratory: Reports: dyspnea. Denies: cough, wheezes Cardiovascular: Reports: chest pain, orthopnea. 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 stroked 2011 History of Any Multi-Drug Resistant Organisms: None Reported Past Surgical History: Breast Surgery Additional Past Surgical History / Comment(s): breast biopsy Past Anesthesia/Blood Transfusion Reactions: No Reported Reaction Past Psychological History: No Psychological Hx Reported Smoking Status: Never smoker Past Alcohol Use History: None Reported Past Drug Use History: None Reported - Past Family History Mother Family Medical History: No Reported History General Exam Limitations: no limitations General appearance: alert, in no apparent distress Head exam: Present: atraumatic, normocephalic Eye exam: Present: normal appearance. Absent: scleral icterus, conjunctival injection Neck exam: Present: normal inspection Respiratory exam: Present: normal lung sounds bilaterally. Absent: respiratory distress, wheezes, rales, rhonchi, stridor, accessory muscle use Cardiovascular Exam: Present: normal rhythm, tachycardia. Absent: systolic murmur, diastolic murmur, rubs, gallop GI/Abdominal exam: Present: soft. Absent: distended, tenderness, guarding, rebound, rigid, mass, pulsatile mass, hernia Extremities exam: Present: normal inspection, normal capillary refill. Absent: pedal edema, calf tenderness Back exam: Present: normal inspection. Absent: CVA tenderness (R), CVA tenderness (L) Neurological exam: Present: alert Skin exam: Present: warm, dry, intact, normal color. Absent: rash Course Vital Signs 03/16/25 03/16/25 03/16/25 02:35 03:15 04:00 Temperature 98.7 F Pulse Rate 125 H 113 H 103 H Respiratory 22 36 H 24 Rate Blood Pressure 104/69 131/57 123/59 O2 Sat by Pulse 89 L 95 94 L Oximetry 03/16/25 03/16/25 03/16/25 05:00 06:00 08:08 Temperature Pulse Rate 92 87 86 Respiratory 24 24 18 Rate Blood Pressure 119/60 121/44 113/60 O2 Sat by Pulse 95 95 95 Oximetry 03/16/25 11:08 Temperature Pulse Rate 72 Respiratory 18 Rate Blood Pressure 114/68 O2 Sat by Pulse 99 Oximetry Medical Decision Making - Medical Decision Making The patient had chest x-ray that I interpreted as negative for acute infiltrate, pneumothorax, congestive heart failure The patient had CT scan that I interpreted as showing presence of acute diver ticulitis. No free air or obstruction. Was pt. sent in by a medical professional or institution ([facility], VETERINARY BACTERIOLOGIST, urgent care, hospital, or half-way...) When possible be specific @ -[No] Did you speak to anyone other than the patient for history (EMS, parent, family, police, friend...)? What history was obtained from this source @ -[No] Did you review nursing and triage notes (agree or disagree)? Why? @ -[I reviewed and agree with nursing and triage notes] Were old charts reviewed (outside hosp., previous admission, EMS record, old EKG, old radiological studies, urgent care reports/EKG's, half-way records)? Report findings @ -[No old charts were reviewed] Differential Diagnosis (chest pain, altered mental status, abdominal pain women, abdominal pain men, vaginal bleeding, weakness, fever, dyspnea, syncope, headache, dizziness, GI bleed, back pain, seizure, CVA, palpatations, mental health, musculoskeletal)? @ -[Differential Abdominal Pain Women: Appendicitis, Cholecystitis, diverticulosis, ischemic bowel, pancreatitis, hepatitis, UTI, gastroenteritis, AAA, incarcerated hernia, bowel obstruction, constipation, inflammatory bowel, hepatitis, peptic ulcer disease, splenic infarction, perforated viscus, vulvitis, ovarian torsion, PID, kidney stone, placenta abruption, this is not meant to be an all-inclusive list EKG interpreted by me (3pts min.). @ -[I interpreted as above] X-rays interpreted by me (1pt min.). @ -[I interpreted as above CT interpreted by me (1pt min.). @ -[I interpreted as above U/S interpreted by me (1pt. min.). @ -[None done] What testing was considered but not performed or refused? (CT, X-rays, U/S, labs)? Why? @ -[None] What meds were considered but not given or refused? Why? @ -[None] Did you discuss the management of the patient with other professionals (professionals i.e. , PA, VETERINARY BACTERIOLOGIST, lab, RT, psych nurse, social work program coordinator, key maker, teacher, compliance review officer, medical case manager)? Give summary @ -[Case discussed with admitting physician and treatment recommendations incorporated Was smoking cessation discussed for >3mins.? @ -[No] Was critical care preformed (if so, how long)? @ -[No] Were there social determinants of health that impacted care today? How? (Homelessness, low income, unemployed, alcoholism, drug addiction, reis sportation, low edu. Level, literacy, decrease access to med. care, usp, rehab)? @ -[No] Was there de-escalation of care discussed even if they declined (Discuss DNR or withdrawal of care, Hospice)? DNR status @ -[No] What co-morbidities impacted this encounter? (DM, HTN, Smoking, COPD, CAD, Canc er, CVA, ARF, Chemo, Hep., AIDS, mental health diagnosis, sleep apnea, morbid obesity)? @ -[None] Was patient admitted / discharged? Hospital course, mention meds given and route, prescriptions, significant lab abnormalities, going to OR and other pertinent info. @ -[Patient is 75-year-old woman here with pain to chest and back and found to have acute diverticulitis. Patient admitted with antibiotics and surgical consultation. Undiagnosed new problem with uncertain prognosis? @ -[No] Drug Therapy requiring intensive monitoring for toxicity (Heparin, Nitro, Insulin, Cardizem)? @ -[No] Were any procedures done? @ -[No] Diagnosis/symptom? @ -[Acute diverticulitis Acute, or Chronic, or Acute on Chronic? @ -[Acute Uncomplicated (without systemic symptoms) or Complicated (systemic symptoms)? @ -[Uncomplicated Side effects of treatment? @ -[No] Exacerbation, Progression, or Severe Exacerbation? @ -[No] Poses a threat to life or bodily function? How? (Chest pain, USA, PA, pneumonia, PE, COPD, DKA, ARF, appy, cholecystitis, CVA, Diverticulitis, Homicidal, Suicidal, threat to staff... and all critical care pts) @ -[No] All treatments are based on ideal body weight as in ED triage - Lab Data Result diagrams: 03/19/25 04:00 03/19/25 04:00 Lab Results 03/16/25 03/16/25 03/16/25 Range/Units 03:13 03:13 03:13 WBC 8.59 (4.50-10.00) 10*3/uL RBC 4.17 (4.10-5.20) 10*6/uL Hgb 13.0 (12.0-15.0) g/dL Hct 38.9 (37.2-46.3) % MCV 93.3 (80.0-97.0) fL MCH 31.2 (27.0-32.0) pg MCHC 33.4 (32.0-37.0) g/dL Plt Count 110 L (140-440) 10*3/uL MPV 10.2 (9.5-12.2) fL Immature Gran % (Auto) 0.1 % Neutrophils % 91.2 % Lymphocytes % 6.5 % Monocytes % 2.0 % Eosinophils % 0.1 % Basophils % 0.1 % Immature Gran # 0.01 (0.00-0.04) 10*3/uL Neutrophils # 7.83 H (1.80-7.70) 10*3/uL Lymphocytes # 0.56 L (0.90-5.00) 10*3/uL Monocytes # 0.17 L (0.20-1.00) 10*3/uL Eosinophils # 0.01 L (0.04-0.35) 10*3/uL Basophils # 0.01 (0.00-0.10) 10*3/uL Immature Plt Fraction 1.5 (1.1-6.1) % PT 12.4 (10.0-12.5) sec INR 1.1 (<1.2) APTT 24.5 (22.0-30.0) sec Sodium 137 (137-145) mmol/L Potassium 3.7 (3.5-5.1) mmol/L Chloride 103 (98-107) mmol/L Carbon Dioxide 23 (22-30) mmol/L Anion Gap 11 mmol/L BUN 23 H (7-17) mg/dL Creatinine 0.91 (0.52-1.04) mg/dL Est GFR (CKD-EPI)AfAm 71 (>60 ml/min/1.73 sqM) Est GFR (CKD-EPI)NonAf 61 (>60 ml/min/1.73 sqM) Glucose 179 H (74-99) mg/dL Plasma Lactic Acid Carl (0.7-2.0) mmol/L Calcium 9.4 (8.4-10.2) mg/dL Total Bilirubin 2.2 H (0.2-1.3) mg/dL AST 229 H (14-36) U/L ALT 216 H (4-34) U/L Alkaline Phosphatase 158 H (38-126) U/L Troponin I (0.000-0.034) ng/mL NT-Pro-B Natriuret Pep 1680 pg/mL Total Protein 7.0 (6.3-8.2) g/dL Albumin 4.1 (3.5-5.0) g/dL 03/16/25 03/16/25 Range/Units 03:13 03:13 WBC (4.50-10.00) 10*3/uL RBC (4.10-5.20) 10*6/uL Hgb (12.0-15.0) g/dL Hct (37.2-46.3) % MCV (80.0-97.0) fL MCH (27.0-32.0) pg MCHC (32.0-37.0) g/dL Plt Count (140-440) 10*3/uL MPV (9.5-12.2) fL Immature Gran % (Auto) % Neutrophils % % Lymphocytes % % Monocytes % % Eosinophils % % Basophils % % Immature Gran # (0.00-0.04) 10*3/uL Neutrophils # (1.80-7.70) 10*3/uL Lymphocytes # (0.90-5.00) 10*3/uL Monocytes # (0.20-1.00) 10*3/uL Eosinophils # (0.04-0.35) 10*3/uL Basophils # (0.00-0.10) 10*3/uL Immature Plt Fraction (1.1-6.1) % PT (10.0-12.5) sec INR (<1.2) APTT (22.0-30.0) sec Sodium (137-145) mmol/L Potassium (3.5-5.1) mmol/L Chloride (98-107) mmol/L Carbon Dioxide (22-30) mmol/L Anion Gap mmol/L BUN (7-17) mg/dL Creatinine (0.52-1.04) mg/dL Est GFR (CKD-EPI)AfAm (>60 ml/min/1.73 sqM) Est GFR (CKD-EPI)NonAf (>60 ml/min/1.73 sqM) Glucose (74-99) mg/dL Plasma Lactic Acid Carl 2.0 (0.7-2.0) mmol/L Calcium (8.4-10.2) mg/dL Total Bilirubin (0.2-1.3) mg/dL AST (14-36) U/L ALT (4-34) U/L Alkaline Phosphatase (38-126) U/L Troponin I 0.013 (0.000-0.034) ng/mL NT-Pro-B Natriuret Pep pg/mL Total Protein (6.3-8.2) g/dL Albumin (3.5-5.0) g/dL - EKG Data -: EKG Interpreted by Me EKG shows normal: sinus rhythm, axis (Left axis deviation), intervals (Normal), QRS complexes (Possible old anterior infarct.) Rate: tachycardia (Rate 120 bpm) Disposition Clinical Impression: Diverticulitis Disposition: ADMITTED IP TO THIS HOSP Condition: Stable Is patient prescribed a controlled substance at d/c from ED?: No
[2025-03-16 03:46] LABS: Basophils # (A) 0.01 10*3/uL (0.00-0.10); Basophils % (A) 0.1 %; Eosinophils # (A) 0.01 10*3/uL (0.04-0.35); Eosinophils % (A) 0.1 %; HCT 38.9 % (37.2-46.3); Immature Platelet Fraction 1.5 % (1.1-6.1); Lymphocytes # (A) 0.56 10*3/uL (0.90-5.00); Lymphocytes % (A) 6.5 %; MCH 31.2 pg (27.0-32.0); MCHC 33.4 g/dL (32.0-37.0); MCV 93.3 fL (80.0-97.0); Mean Platelet Volume 10.2 fL (9.5-12.2); Monocytes # (A) 0.17 10*3/uL (0.20-1.00); Neutrophils # (A) 7.83 10*3/uL (1.80-7.70); Neutrophils % (A) 91.2 %; Platelet Count 110 10*3/uL (140-440); RBC 4.17 10*6/uL (4.10-5.20); RDW 14.2 % (11.5-14.5); WBC 8.59 10*3/uL (4.50-10.00)
[2025-03-16 03:54] LABS: INR 1.1 (<1.2); Partial Thromboplastin Time 24.5 sec (22.0-30.0); Prothrombin Time 12.4 sec (10.0-12.5)
[2025-03-16 03:59] LABS: ALT 216 U/L (4-34); AST 229 U/L (14-36); African American GFR (CKD) 71 (>60 ml/min/1.73 sqM); Albumin 4.1 g/dL (3.5-5.0); Alkaline Phosphatase 158 U/L (38-126); Anion Gap 11 mmol/L; Blood Urea Nitrogen 23 mg/dL (7-17); Calcium 9.4 mg/dL (8.4-10.2); Carbon Dioxide 23 mmol/L (22-30); Chloride 103 mmol/L (98-107); Glucose 179 mg/dL (74-99); Non-African American GFR(CKD) 61 (>60 ml/min/1.73 sqM); Potassium 3.7 mmol/L (3.5-5.1); Sodium 137 mmol/L (137-145); Total Bilirubin 2.2 mg/dL (0.2-1.3)
[2025-03-16 04:08] LABS: NT-Pro-B-Type Natriuretic Pept 1680 pg/mL
--- NOTE | 2025-03-16 05:10 | XR ---
EXAM: XR Chest, 1 View CLINICAL HISTORY: ITS.REASON XR Reason: dyspnea TECHNIQUE: Frontal view of the chest. COMPARISON: 02/05/2025. FINDINGS: Lungs: No consolidation or mass. COPD Pleural space: No acute findings. Heart: cardiomegaly. Bones/joints: No acute findings. IMPRESSION: No acute cardiopulmonary process.
--- NOTE | 2025-03-16 07:07 | CT ---
EXAM: CT Abdomen and Pelvis Without Intravenous Contrast CLINICAL HISTORY: ITS.REASON CT Reason: RUQ abdominal pain TECHNIQUE: Axial computed tomography images of the abdomen and pelvis without intravenous contrast. CTDI is 25.9 mGy and DLP is 1670 mGy-cm. This CT exam was performed using one or more of the following dose reduction techniques: automated exposure control, adjustment of the mA and/or kV according to patient size, and/or use of iterative reconstruction technique. COMPARISON: No relevant prior studies available. FINDINGS: Limitations: Limited evaluation in the absence of contrast. Lung bases: Unremarkable. No mass. No consolidation. Mediastinum: Moderate hiatal hernia. ABDOMEN: Liver: Unremarkable. Gallbladder and bile ducts: Cholelithiasis. No gross findings to suggest cholecystitis. No ductal dilation. Pancreas: Unremarkable. No ductal dilation. Spleen: Unremarkable. No splenomegaly. Adrenals: Unremarkable. No mass. Kidneys and ureters: No evidence of radiopaque renal calculi or signs of collecting system dilatation. Simple bilateral renal cysts. No follow-up of these simple cysts is necessary. Stomach and bowel: No evidence of bowel obstruction. Acute diverticulitis involving the proximal sigmoid colon with inflamed diverticula and adjacent inflammatory change. PELVIS: Appendix: Normal appendix. Bladder: Unremarkable. No stones. Reproductive: Unremarkable as visualized. ABDOMEN and PELVIS: Intraperitoneal space: Unremarkable. No free air. No significant fluid collection. Bones/joints: Degenerative changes in the spine. No acute fracture. No dislocation. Soft tissues: Umbilical hernia containing fat. Vasculature: Unremarkable. No abdominal aortic aneurysm. Lymph nodes: Unremarkable. No enlarged lymph nodes. IMPRESSION: 1. Limited evaluation in the absence of contrast. 2. No evidence of radiopaque renal calculi or signs of collecting system dilatation. 3. Acute diverticulitis involving the proximal sigmoid colon with inflamed diverticula and adjacent inflammatory change. No gross evidence of colonic perforation or abscess. 4. Cholelithiasis. No gross findings to suggest cholecystitis. 5. No other acute findings. 6. Incidental findings as described.
[2025-03-16] MEDS ORDERED: NALOXONE 0.4 MG/ML 1 ML VIAL IV PRN (07:16)
[2025-03-16] MEDS: metroNIDAZOLE-NS PMX 500 MG in SALINE 1 100ML.BAG IVPB SCH (08:03)
[2025-03-16] MEDS: SODIUM CHLORIDE 0.9% 1,000 ML IV SCH (08:03)
[2025-03-16] MEDS ORDERED: ATORVASTATIN 40 MG TAB PO SCH (09:45)
[2025-03-16] MEDS: PANTOPRAZOLE 40 MG TABLET PO SCH ×2 (10:06→20:09)
[2025-03-16] MEDS: FOLIC ACID 1 MG TAB PO SCH (10:06)
[2025-03-16] MEDS: amLODIPine 5 MG TAB PO SCH (10:06)
[2025-03-16] MEDS: OXYBUTYNIN XL 5 MG TAB.ER.24 PO SCH (10:06)
--- NOTE | 2025-03-16 10:59 | P.HPIM ---
History of Present Illness H&P Date: 03/16/25 History of Presenting Illness: Patient is a pleasant 75-year-old female with a past medical history of paroxysmal atrial fibrillation coagulation with Eliquis, hypertension, hyperlipidemia, previous CVA x 3 with last stroke 2011, and GERD. She presented to the emergency department with a chief complaint of epigastric pain, inability to take a deep breath, and shortness of breath. Patient reports the symptoms began approximately 1 PM yesterday afternoon and progressively worsened. She states pain to epigastric region radiating up into her chest and into her back and has been accompanied by weakness, severe fatigue, and chills. She states she did not assess her temperature but does not know if she was running a fever, denies diaphoresis, headache, lightheadedness, palpitations, cough or congestion, shortness of breath at rest, nausea, vomiting, or experiencing any difficulties with or changes in her urinary or bowel function. Patient reports last bowel movement was 03/14/2025 and this is normal for her. Patient reports. Recent diagnosis of kidney cancer. Upon arrival to our facility, patient underwent evaluation in the emergency department. Vital signs upon arrival show blood pressure 104/69, heart rate 125, respiratory rate 22, temp 98.7 F, and SpO2 of 89% on 2 L O2 via nasal cannula. EKG completed showed tachycardia at 120 bpm. Chest x-ray completed negative for acute cardiopulmonary process. CT abdomen and pelvis without contrast completed showing acute diverticulitis involving the proximal sigmoid colon with inflamed diverticula and adjacent inflammatory changes and cholelithiasis with no evidence of ductal dilation or signs of acute cholecystitis, simple bilateral renal cysts and umbilical hernia containing fat. Labs completed and reviewed. CBC showing thrombocytopenia with platelet count of 110 and elevated neutrophils of 7.83. Coagulation profile n ormal findings. BMP showing mild prerenal azotemia with BUN of 23 and blood glucose of 179. Lactic acid was 2.0. Calcium 9.4. Liver profile showing elevated total bili of 2.2, AST of 229, ALT of 216, and alkaline phosphatase of 158. Troponin 0.013 and proBNP 1680. Patient admitted under our services with consultation to surgery. Review of systems: Pertinent positives and negatives as discussed in HPI, a complete review of systems was performed and all other systems are negative. Physical exam: Vital signs reviewed and stable. General: Nontoxic, no distress and appears stated age. Derm: Skin warm and dry, normal coloration for ethnicity. Head: Atraumatic, normocephalic and symmetric. Eyes: EOM's intact, no lid lag, and anicteric sclera Mouth: no lip lesions, mucus membranes moist Cardiovascular: regular rate and rhythm with normal S1S2, no murmur, positive posterior tibial pulses bilaterally, and cap refill < 2 seconds. Lungs: Respirations even, regular, and unlabored on room air. Lungs diminished otherwise clear with no rhonchi, no rales, no wheezing, and no accessory muscle usage. Abdominal: soft distended, tenderness upon palpation right upper quadrant, no guarding, no appreciable organomegaly Ext: ROM intact. No gross muscle atrophy, no edema, no contractures Neuro: Speech clear, face symmetrical and CN II-XII grossly intact with no noted focal neuro deficits Psych: Alert and oriented to person, place, time, and situation. Appropriate and pleasant affect. Assessment and Plan of Care: Acute diverticulitis Cholelithiasis Hyperbilirubinemia with transaminitis Epigastric/Chest pain and Right upper quadrant tenderness, likely secondary to above Thrombocytopenia Sepsis on admission, secondary to above - Continue IV antibiotics with Rocephin 2 g daily and Flagyl 500 mg every 8 hours. - General Surgery consulted secondary to right upper quadrant pain, transaminitis, and hyperbilirubinemia with CT findings of cholelithiasis and diverticulitis - Clear liquid diet, pending evaluation by general surgery - Gentle IV fluid hydration with 0.9% normal saline at 75 cc/h - Hold Eliquis pending evaluation by general surgery team. - Hold hepatotoxic medications including atorvastatin pending repeat labs. - Patient placed on telemetry monitoring and we will trend troponins. - Repeat morning CBC and CMP for close monitoring of thrombocytopenia and hyperbilirubinemia with transaminitis Paroxysmal atrial fibrillation Hypertension anemia History of CVA x 3 - Hold Eliquis pending further evaluation/recommendations by general surgery. - Atorvastatin held secondary to hyperbilirubinemia with transaminitis pending repeat labs. - Monitor vital signs and continue daily medication regimen with amlodipine 5 mg daily. Data and imaging reviewed: As stated above in HPI The patient is admitted with an anticipated greater than 2 midnight stay for evaluation of sepsis secondary to acute diverticulitis CODE STATUS: Full code DVT prophylaxis: Lovenox, may resume Eliquis once cleared by general surgery team Discussed with: Patient, RN, and ED physician Anticipated discharge date: Pending clinical course Anticipated discharge place: Pending clinical course Patient was seen independently by Nurse Practitioner. This document was prepared using [email or web address] dictation software. Please allow for errors in dental instructor while rare they do occur. Romain Moura NP rendered care for this patient independently, reviewed the findings and plan as documented in the note above and agree with plan. I did not physically speak with or examine the patient on this date. 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 stroked 2011 History of Any Multi-Drug Resistant Organisms: None Reported Past Surgical History: Breast Surgery Additional Past Surgical History / Comment(s): breast biopsy Past Anesthesia/Blood Transfusion Reactions: No Reported Reaction Past Psychological History: No Psychological Hx Reported Smoking Status: Never smoker Past Alcohol Use History: None Reported Past Drug Use History: None Reported - Past Family History Mother Family Medical History: No Reported History Medications and Allergies Home Medications Medication Instructions Recorded Confirmed Type amLODIPine BESYLATE [Norvasc] 5 mg PO DAILY 04/14/18 02/03/22 History Tolterodine ER [Detrol LA] 4 mg PO DAILY 10/14/18 02/03/22 History Esomeprazole Magnesium [NexIUM] 80 mg PO DAILY 03/20/21 02/03/22 History Cholecalciferol [Vitamin D3 (25 25 mcg PO DAILY 02/03/22 02/03/22 History Mcg = 1000 Iu)] Folic Acid 0.8 mg PO DAILY 02/03/22 02/03/22 History Apixaban [Eliquis] 5 mg PO BID #60 tab 02/06/22 Rx Atorvastatin [Lipitor] 40 mg PO DAILY #30 tablet 02/06/22 Rx Allergies Allergy/AdvReac Type Severity Reaction Status Date / Time No Known Allergies Allergy Verified 03/16/25 02:37 Physical Exam Vitals: Vital Signs Temp Pulse Resp BP Pulse Ox 03/16/25 08:08 86 18 113/60 95 03/16/25 06:00 87 24 121/44 95 03/16/25 05:00 92 24 119/60 95 03/16/25 04:00 103 H 24 123/59 94 L 06/17/25 03:15 113 H 36 H 131/57 95 03/16/25 02:35 98.7 F 125 H 22 104/69 89 L Intake and Output 03/15/25 03/16/25 03/16/25 22:59 06:59 14:59 Other: Weight 122.47 kg Results CBC & Chem 7: 03/16/25 03:13 03/16/25 03:13 Labs: Abnormal Lab Results - Last 24 Hours (Table) 03/16/25 03/16/25 Range/Units 03:13 03:13 Plt Count 110 L (140-440) 10*3/uL Neutrophils # 7.83 H (1.80-7.70) 10*3/uL Lymphocytes # 0.56 L (0.90-5.00) 10*3/uL Monocytes # 0.17 L (0.20-1.00) 10*3/uL Eosinophils # 0.01 L (0.04-0.35) 10*3/uL BUN 23 H (7-17) mg/dL Glucose 179 H (74-99) mg/dL Total Bilirubin 2.2 H (0.2-1.3) mg/dL AST 229 H (14-36) U/L ALT 216 H (4-34) U/L Alkaline Phosphatase 158 H (38-126) U/L
[2025-03-16] MEDS: ENOXAPARIN 40 MG/0.4 ML SYRINGE SQ SCH (13:15)
--- NOTE | 2025-03-16 14:04 | P.GSCN ---
History of Present Illness Consult date: 03/16/25 History of present illness: CHIEF COMPLAINT: Shortness of breath HISTORY OF PRESENT ILLNESS: This is a 75-year-old female who presented to the hospital with complaints of epigastric abdominal pain and shortness of breath. Patient had also reported back pain. Patient denies any nausea or vomiting. She reports having a bowel movement 2 days ago. She denies any blood in her stool. Denies any history of diverticulitis. Last colonoscopy was about 5 years ago. She had a CT scan abdomen pelvis completed that did report acute diverticulitis involving the proximal sigmoid colon. Cholelithiasis with no findings to suggest cholecystitis. Patient does report history of gallstones. PAST MEDICAL HISTORY: CVA, A-fib on Eliquis, hyperlipidemia hypertension and osteoarthritis PAST SURGICAL HISTORY: See below MEDICATIONS: See below ALLERGIES: See below SOCIAL HISTORY: No illicit drug use. REVIEW OF SYSTEMS: CONSTITUTIONAL: Denies fever or chills. HEENT: Denies blurred vision, vision changes, or eye pain. Denies hemoptysis CARDIOVASCULAR: Denies chest pain or pressure. RESPIRATORY: No shortness of breath. GASTROINTESTINAL: See HPI for pertinent findings HEMATOLOGIC: Denies bleeding disorders. GENITOURINARY: Denies any blood in urine or increased urinary frequency. SKIN: Denies pruitis. Denies rash. PHYSICAL EXAM: VITAL SIGNS: Reviewed GENERAL: Well-developed in no acute distress. HEENT: No sclera icterus. Extraocular movements grossly intact. Moist buccal mucosa. Head is atraumatic, normocephalic. No nasal drainage. ABDOMEN: Soft. Obese. Nondistended. Tenderness palpation to the left lower quadrant and right lower quadrant. More tender in the left lower quadrant NEUROLOGIC: Alert and oriented. Cranial nerves II through XII grossly intact. LABORATORY DATA: WBC 8.59 Hgb 13 platelets 110 Total bilirubin 2.2 AST 229 ALT 216 alk phos 158 Lactic acid 2.0 IMAGING: CT scan abdomen and pelvis acute diverticulitis involving the proximal sigmoid colon with inflamed diverticula and adjacent inflammatory change. No gross ev idence of colonic perforation or abscess. Cholelithiasis no gross findings to suggest cholecystitis ASSESSMENT: 1. Acute diverticulitis involving the sigmoid colon 2. Cholelithiasis with elevated LFTs and total bilirubin PLAN: - Continue IV antibiotics - Okay for clear liquid diet - Continue pain management - Gallbladder ultrasound ordered due to gallstones and elevated liver enzymes and bilirubin Physician Power Transformer Inspector note has been reviewed by physician. Signing provider agrees with the documented findings, assessment, and plan of care. Attestation Patient seen and examined at bedside on 03/16/2025. Presented with chief complaint of back pain and shortness of breath. She was found to have some tenderness in her lower abdomen and workup was performed with CT of the abdomen and pelvis. Found to have concern for acute diverticulitis of the proximal sigmoid colon. She is started on IV antibiotics. We will plan for clear liquid diet. On evaluation patient is also noted to have elevated liver enzymes. Gallbladder ultrasound has been ordered. Will await these results. 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 History of Any Multi-Drug Resistant Organisms: None Reported Past Surgical History: Breast Surgery Additional Past Surgical History / Comment(s): breast biopsy Past Anesthesia/Blood Transfusion Reactions: No Reported Reaction Past Psychological History: No Psychological Hx Reported Smoking Status: Never smoker Past Alcohol Use History: None Reported Past Drug Use History: None Reported - Past Family History Mother Family Medical History: No Reported History Medications and Allergies Home Medications Medication Instructions Recorded Confirmed Type amLODIPine BESYLATE [Norvasc] 5 mg PO DAILY 04/14/18 03/16/25 History Tolterodine ER [Detrol LA] 4 mg PO DAILY 10/14/18 03/16/25 History Cholecalciferol [Vitamin D3 (25 25 mcg PO DAILY 02/03/22 03/16/25 History Mcg = 1000 Iu)] Apixaban [Eliquis] 5 mg PO BID #60 tab 02/06/22 03/16/25 Rx Bumetanide [Bumex] 1 mg PO DAILY 03/16/25 03/16/25 History Cyanocobalamin (Vitamin B-12) 1,000 mcg PO DAILY 03/16/25 03/16/25 History [Vitamin B-12] Folic Acid 0.4 mg PO DAILY 03/16/25 03/16/25 History Ipratropium-Albuterol Nebulize 3 ml INHALATION RT-QID PRN 03/16/25 03/16/25 History [Duoneb 0.5 mg-3 mg/3 ml Soln] Omeprazole 40 mg PO BID 03/16/25 03/16/25 History Potassium Chloride ER [K-Dur 20] 20 meq PO DAILY 03/16/25 03/16/25 History Rosuvastatin [Crestor] 20 mg PO HS 03/16/25 03/16/25 History Allergies Allergy/AdvReac Type Severity Reaction Status Date / Time No Known Allergies Allergy Verified 03/16/25 11:22 Surgical - Exam Osteopathic Statement: *. No significant issues noted on an osteopathic structural exam other than those noted in the History and Physical/Consult. Vital Signs Temp Pulse Resp BP Pulse Ox 98.7 F 125 H 22 104/69 89 L 03/16/25 02:35 03/16/25 02:35 03/16/25 02:35 03/16/25 02:35 03/16/25 02:35 Results - Labs 03/17/25 05:24 03/17/25 05:24 Abnormal Lab Results - Last 24 Hours (Table) 03/16/25 03/16/25 Range/Units 03:13 03:13 Plt Count 110 L (140-440) 10*3/uL Neutrophils # 7.83 H (1.80-7.70) 10*3/uL Lymphocytes # 0.56 L (0.90-5.00) 10*3/uL Monocytes # 0.17 L (0.20-1.00) 10*3/uL Eosinophils # 0.01 L (0.04-0.35) 10*3/uL BUN 23 H (7-17) mg/dL Glucose 179 H (74-99) mg/dL Total Bilirubin 2.2 H (0.2-1.3) mg/dL AST 229 H (14-36) U/L ALT 216 H (4-34) U/L Alkaline Phosphatase 158 H (38-126) U/L Diabetes panel 03/16/25 Range/Units 03:13 Sodium 137 (137-145) mmol/L Potassium 3.7 (3.5-5.1) mmol/L Chloride 103 (98-107) mmol/L Carbon Dioxide 23 (22-30) mmol/L BUN 23 H (7-17) mg/dL Creatinine 0.91 (0.52-1.04) mg/dL Glucose 179 H (74-99) mg/dL Calcium 9.4 (8.4-10.2) mg/dL AST 229 H (14-36) U/L ALT 216 H (4-34) U/L Alkaline Phosphatase 158 H (38-126) U/L Total Protein 7.0 (6.3-8.2) g/dL Albumin 4.1 (3.5-5.0) g/dL Calcium panel 03/16/25 Range/Units 03:13 Calcium 9.4 (8.4-10.2) mg/dL Albumin 4.1 (3.5-5.0) g/dL Pituitary panel 03/16/25 Range/Units 03:13 Sodium 137 (137-145) mmol/L Potassium 3.7 (3.5-5.1) mmol/L Chloride 103 (98-107) mmol/L Carbon Dioxide 23 (22-30) mmol/L BUN 23 H (7-17) mg/dL Creatinine 0.91 (0.52-1.04) mg/dL Glucose 179 H (74-99) mg/dL Calcium 9.4 (8.4-10.2) mg/dL Adrenal panel 03/16/25 Range/Units 03:13 Sodium 137 (137-145) mmol/L Potassium 3.7 (3.5-5.1) mmol/L Chloride 103 (98-107) mmol/L Carbon Dioxide 23 (22-30) mmol/L BUN 23 H (7-17) mg/dL Creatinine 0.91 (0.52-1.04) mg/dL Glucose 179 H (74-99) mg/dL Calcium 9.4 (8.4-10.2) mg/dL Total Bilirubin 2.2 H (0.2-1.3) mg/dL AST 229 H (14-36) U/L ALT 216 H (4-34) U/L Alkaline Phosphatase 158 H (38-126) U/L Total Protein 7.0 (6.3-8.2) g/dL Albumin 4.1 (3.5-5.0) g/dL
[2025-03-16] MEDS: IPRATROPIUM-ALBUTEROL 3 ML NEB INHALATION PRN (20:12)
[2025-03-17 05:53] LABS: HCT 37.1 % (37.2-46.3); HGB 11.9 g/dL (12.0-15.0); MCH 30.6 pg (27.0-32.0); MCHC 32.1 g/dL (32.0-37.0); MCV 95.4 fL (80.0-97.0); Mean Platelet Volume 10.2 fL (9.5-12.2); RBC 3.89 10*6/uL (4.10-5.20); RDW 14.4 % (11.5-14.5); WBC 6.58 10*3/uL (4.50-10.00)
[2025-03-17 06:32] LABS: ALT 120 U/L (4-34); AST 38 U/L (14-36); African American GFR (CKD) >90 (>60 ml/min/1.73 sqM); Albumin 3.3 g/dL (3.5-5.0); Alkaline Phosphatase 118 U/L (38-126); Anion Gap 10 mmol/L; Blood Urea Nitrogen 19 mg/dL (7-17); Calcium 9.3 mg/dL (8.4-10.2); Carbon Dioxide 22 mmol/L (22-30); Chloride 107 mmol/L (98-107); Glucose 113 mg/dL (74-99); Magnesium 1.9 mg/dL (1.6-2.3); Non-African American GFR(CKD) 80 (>60 ml/min/1.73 sqM); Potassium 3.6 mmol/L (3.5-5.1); Sodium 139 mmol/L (137-145); Total Bilirubin 1.3 mg/dL (0.2-1.3)
[2025-03-17 07:47] LABS: Platelet Count 87 10*3/uL (140-440)
--- NOTE | 2025-03-17 08:37 | US ---
EXAMINATION TYPE: US gallbladder DATE OF EXAM: 03/17/2025 COMPARISON: CT yesterday CLINICAL INDICATION: Female, 75 years old with history of abdominal pain, elevated LFTs; Elevated LFT 's, pain TECHNIQUE: Grayscale and color Doppler imaging of the right upper quadrant was performed. FINDINGS: EXAM MEASUREMENTS: Liver Length: 18.8 cm Gallbladder Wall: 0.2 cm CBD: 1.2 cm Right Kidney: 11.0 x 5.4 x 5.1 cm SIX SIGMA BLACK TRAINER NOTES: Pancreas: wnl, tail obscured by overlying bowel gas Liver: Heterogeneous, enlarged, cystic lesion at javier= 2.9 x 2.2 x 2.2 cm Gallbladder: Distended, small "gravel stones", wall not thickened Evidence for sonographic Ochoa's sign: No CBD: Dilated Right Kidney: No evidence of hydro, cortical thinning, cystic lesion upper pole= 3.9 x 4.1 x 3.7 cm IMPRESSION: 1. No evidence for acute process. 2. Heterogenous liver correlate with serum markers likely hepatic steatosis. 3. Cholelithiasis. 4. Simple appearing liver cyst no follow-up recommended. [facility], , 03/17/2025 8:35 AM
--- NOTE | 2025-03-17 10:59 | P.PN ---
Subjective Progress Note Date: 03/17/25 SURGICAL PROGRESS NOTE CHIEF COMPLAINT: Abdominal pain HISTORY OF PRESENT ILLNESS: Patient reports that she is feeling better. Her pain today is improving. She denies any nausea or vomiting. Gallbladder ultrasound reports no acute process. Heterogeneous liver correlate for hepatic steatosis. Cholelithiasis simple appearing liver cyst. CBD dilated 1.2 cm. Afebrile. WBC 6.58 Hgb 11.9 total bilirubin is down from 2.2-1.3 LFTs trending down PHYSICAL EXAM: VITAL SIGNS: Reviewed. GENERAL: Well-developed in no acute distress. ABDOMEN: Soft. Obese. Nondistended. Mild tenderness left lower quadrant. Nontender right upper quadrant NEUROLOGIC: Alert and oriented. Cranial nerves II through XII grossly intact. ASSESSMENT: 1. Acute diverticulitis involving the sigmoid colon 2. Cholelithiasis. Nontender right upper quadrant. Total bilirubin normalized LFTs trending down. She may have passed a stone. Gallbladder ultrasound reporting no acute process. Cholelithiasis noted. CBD dilated 1.2 cm PLAN: - Advance diet to full liquids - Continue antibiotics for diverticulitis - Continue to monitor - Gallbladder ultrasound results reviewed with Dr. Griffin. No surgical intervention planned. Physician Lead Teller note has been reviewed by physician. Signing provider agrees with the documented findings, assessment, and plan of care. Attestation Patient seen and examined at bedside. States abdominal pain is improved. LFTs trending down. Ultrasound reviewed with finding of cholelithiasis and no acute findings. Plan to advance diet to full liquid diet. Continue antibiotics for diverticulitis. No plan for surgical intervention for gallbladder etiology secondary to no evidence of cholecystitis. Yvrose Griffin, Objective - Vital Signs Vital signs: Vital Signs Temp 98.4 F 03/17/25 07:00 Pulse 80 03/17/25 07:00 Resp 19 03/17/25 07:00 BP 109/55 03/17/25 07:00 Pulse Ox 95 03/17/25 07:00 FiO2 Intake & Output 03/16/25 03/17/25 03/17/25 18:59 06:59 18:59 Intake Total 350 Balance 350 Weight 122.47 kg Intake: Oral 350 Other: Voiding Method Toilet Toilet # Voids 1 - Labs CBC & Chem 7: 03/17/25 05:24 03/17/25 05:24 Labs: Abnormal Lab Results - Last 24 Hours (Table) 03/17/25 03/17/25 Range/Units 05:24 05:24 RBC 3.89 L (4.10-5.20) 10*6/uL Hgb 11.9 L (12.0-15.0) g/dL Hct 37.1 L (37.2-46.3) % Plt Count 87 L (140-440) 10*3/uL BUN 19 H (7-17) mg/dL Glucose 113 H (74-99) mg/dL AST 38 H (14-36) U/L ALT 120 H (4-34) U/L Total Protein 6.0 L (6.3-8.2) g/dL Albumin 3.3 L (3.5-5.0) g/dL
--- NOTE | 2025-03-17 11:55 | P.PN ---
Subjective Progress Note Date: 03/17/25 Hospital course: Patient is a pleasant 75-year-old female with a past medical history of paroxysmal atrial fibrillation coagulation with Eliquis, hypertension, hyperlipidemia, previous CVA x 3 with last stroke 2011, and GERD. She presented to the emergency department with a chief complaint of epigastric pain, inability to take a deep breath, and shortness of breath. Patient reports the symptoms began approximately 1 PM yesterday afternoon and progressively worsened. She states pain to epigastric region radiating up into her chest and into her back and has been accompanied by weakness, severe fatigue, and chills. She states she did not assess her temperature but does not know if she was running a fever, denies diaphoresis, headache, lightheadedness, palpitations, cough or congestion, shortness of breath at rest, nausea, vomiting, or experiencing any difficulties with or changes in her urinary or bowel function. Patient reports last bowel movement was 03/14/2025 and this is normal for her. Patient reports. Recent diagnosis of kidney cancer. Upon arrival to our facility, patient under went evaluation in the emergency department. Vital signs upon arrival show blood pressure 104/69, heart rate 125, respiratory rate 22, temp 98.7 F, and SpO2 of 89% on 2 L O2 via nasal cannula. EKG completed showed tachycardia at 120 bpm. Chest x-ray completed negative for acute cardiopulmonary process. CT abdomen and pelvis without contrast completed showing acute diverticulitis involving the proximal sigmoid colon with inflamed diverticula and adjacent inflammatory changes and cholelithiasis with no evidence of ductal dilation or signs of acute cholecystitis, simple bilateral renal cysts and umbilical hernia containing fat. Labs completed and reviewed. CBC showing thrombocytopenia with platelet count of 110 and elevated neutrophils of 7.83. Coagulation profile normal findings. BMP showing mild prerenal azotemia with BUN of 23 and blood glucose of 179. Lactic acid was 2.0. Calcium 9.4. Liver profile showing elevated total bili of 2.2, AST of 229, ALT of 216, and alkaline phosphatase of 158. Troponin 0.013 and proBNP 1680. Patient admitted under our services with consultation to surgery. Physical exam: Vital signs reviewed and stable. General: Nontoxic, no distress and appears stated age. Derm: Skin warm and dry, normal coloration for ethnicity. Head: Atraumatic, normocephalic and symmetric. Eyes: EOM's intact, no lid lag, and anicteric sclera Mouth: no lip lesions, mucus membranes moist Cardiovascular: regular rate and rhythm with normal S1S2, no murmur, positive posterior tibial pulses bilaterally, and cap refill < 2 seconds. Lungs: Respirations even, regular, and unlabored on room air. Lungs diminished otherwise clear with no rhonchi, no rales, no wheezing, and no accessory muscle usage. Abdominal: soft distended, non tender upon palpation, no guarding, no appreciable organomegaly Ext: ROM intact. No gross muscle atrophy, no edema, no contractures Neuro: Speech clear, face symmetrical and CN II-XII grossly intact with no noted focal neuro deficits Psych: Alert and oriented to person, place, time, and situation. Appropriate and pleasant affect. Assessment and Plan of Care: Acute diverticulitis Cholelithiasis Hyperbilirubinemia with transaminitis Epigastric/Chest pain and Right upper quadrant tenderness, likely secondary to above Thrombocytopenia Sepsis on admission, secondary to above - Continue IV antibiotics with Rocephin 2 g daily and Flagyl 500 mg every 8 hours. - General Surgery following, discussed plan of care with General Surgery PHOTOGRAPHER MOTION PICTURE. - Gallbladder US showing no evidence for acute process, revealing cholelithiasis and hepatic steatosis. - Advance from clear liquid diet to full liquid diet today. - Hold hepatotoxic medications including atorvastatin pending repeat labs. - Patient placed on telemetry monitoring and we will trend troponins. - Repeat morning CBC and CMP for close monitoring of thrombocytopenia and hyp erbilirubinemia with transaminitis Paroxysmal atrial fibrillation Hypertension anemia History of CVA x 3 - Hold Eliquis pending further evaluation/recommendations by general surgery. - Atorvastatin held secondary to hyperbilirubinemia with transaminitis pending repeat labs. - Monitor vital signs and continue daily medication regimen with amlodipine 5 mg daily. Data and imaging reviewed: Labs reviiwed. CBC showing bicytopenia with Hgb of 11.9 and platelet count of 87. BMP unremarkable. Liver profile showing resolution of hyperbilirubinemia and improvement of transaminitis with AST of 38, ALT 120, and Alk phos of 118. - Vital signs reviewed. BP 109/55, HR 80, RR 19, Temp 98.4 and SPO2 95% on room air. CODE STATUS: Full code DVT prophylaxis: Lovenox, may resume Eliquis once cleared by general surgery team Discussed with: Patient, RN, and ED physician Anticipated discharge date: Pending clinical course Anticipated discharge place: Pending clinical course Patient was seen independently by Nurse Practitioner. This document was prepared using [employer] dictation software. Please allow for errors in aircraft general repair mechanic while rare they do occur. Romain Moura NP rendered care for this patient independently, reviewed the findings and plan as documented in the note above and agree with plan. I did not physically speak with or examine the patient on this date. Objective - Vital Signs Vital signs: Vital Signs Temp 98.4 F 03/17/25 07:00 Pulse 80 03/17/25 07:00 Resp 19 03/17/25 07:00 BP 109/55 03/17/25 07:00 Pulse Ox 95 03/17/25 07:00 FiO2 Intake & Output 03/16/25 03/17/25 03/17/25 18:59 06:59 18:59 Weight 122.47 kg Other: Voiding Method Toilet Toilet # Voids 1 - Labs CBC & Chem 7: 03/17/25 05:24 03/17/25 05:24 Labs: Abnormal Lab Results - Last 24 Hours (Table) 03/17/25 03/17/25 Range/Units 05:24 05:24 RBC 3.89 L (4.10-5.20) 10*6/uL Hgb 11.9 L (12.0-15.0) g/dL Hct 37.1 L (37.2-46.3) % Plt Count 87 L (140-440) 10*3/uL BUN 19 H (7-17) mg/dL Glucose 113 H (74-99) mg/dL AST 38 H (14-36) U/L ALT 120 H (4-34) U/L Total Protein 6.0 L (6.3-8.2) g/dL Albumin 3.3 L (3.5-5.0) g/dL
[2025-03-17] MEDS: ATORVASTATIN 40 MG TAB PO SCH (20:57)
[2025-03-17] MEDS: APIXABAN 5 MG TAB PO SCH (20:57)
[2025-03-18 06:11] LABS: HGB 13.2 g/dL (12.0-15.0); Immature Platelet Fraction 2.6 % (1.1-6.1); MCH 31.5 pg (27.0-32.0); MCV 95.5 fL (80.0-97.0); Mean Platelet Volume 10.4 fL (9.5-12.2); Platelet Count 115 10*3/uL (140-440); RBC 4.19 10*6/uL (4.10-5.20); RDW 14.3 % (11.5-14.5); WBC 6.89 10*3/uL (4.50-10.00)
[2025-03-18 06:28] LABS: ALT 82 U/L (4-34); AST 25 U/L (14-36); African American GFR (CKD) >90 (>60 ml/min/1.73 sqM); Albumin 3.5 g/dL (3.5-5.0); Alkaline Phosphatase 116 U/L (38-126); Anion Gap 9 mmol/L; Blood Urea Nitrogen 12 mg/dL (7-17); Calcium 9.5 mg/dL (8.4-10.2); Carbon Dioxide 24 mmol/L (22-30); Chloride 107 mmol/L (98-107); Glucose 133 mg/dL (74-99); Magnesium 1.9 mg/dL (1.6-2.3); Non-African American GFR(CKD) 83 (>60 ml/min/1.73 sqM); Potassium 3.7 mmol/L (3.5-5.1); Sodium 140 mmol/L (137-145); Total Protein 6.3 g/dL (6.3-8.2)
[2025-03-18] MEDS: FOLIC ACID 1 MG TAB PO SCH (09:45)
[2025-03-18] MEDS: CHOLECALCIFEROL 25 MCG (1000 IU) TABLET PO SCH (09:45)
--- NOTE | 2025-03-18 11:02 | P.PN ---
Subjective Progress Note Date: 03/18/25 SURGICAL PROGRESS NOTE CHIEF COMPLAINT: Abdominal pain HISTORY OF PRESENT ILLNESS: Patient denies any abdominal pain. Tolerating the full liquid diet. Denies any nausea or vomiting. Afebrile. Vital stable. WBC 6.89. Total bilirubin normalized at 1.0 LFTs trending down. Patient requesting more to eat. PHYSICAL EXAM: VITAL SIGNS: Reviewed. GENERAL: Well-developed in no acute distress. ABDOMEN: Soft. Obese. Nondistended. Nontender NEUROLOGIC: Alert and oriented. Cranial nerves II through XII grossly intact. ASSESSMENT: 1. Acute diverticulitis involving the sigmoid colon 2. Cholelithiasis. Nontender right upper quadrant. Total bilirubin normalized LFTs trending down. She may have passed a stone. Gallbladder ultrasound reporting no acute process. Cholelithiasis noted. CBD dilated 1.2 cm PLAN: -Advance diet to low fiber -Continue antibiotics for diverticulitis -No surgical intervention planned for gallbladder secondary to no evidence of cholecystitis -Patient will need colonoscopy outpatient in the next 4 to 6 weeks Physician Market Editor note has been reviewed by physician. Signing provider agrees with the documented findings, assessment, and plan of care. Attestation Patient seen and examined at bedside. Abdominal pain significantly improved. Having bowel function. Continue IV antibiotics for diverticulitis. Advance diet to low fiber diet. Yvrose Griffin DO Objective - Vital Signs Vital signs: Vital Signs Temp 98.4 F 03/18/25 02:46 Pulse 78 03/18/25 02:46 Resp 18 03/18/25 02:46 BP 100/58 03/18/25 02:46 Pulse Ox 94 L 03/18/25 02:46 FiO2 Intake & Output 03/17/25 03/18/25 03/18/25 18:59 06:59 18:59 Intake Total 550 Balance 550 Intake: Oral 550 Other: Voiding Method Toilet # Voids 1 - Labs CBC & Chem 7: 03/18/25 05:35 03/18/25 05:35 Labs: Abnormal Lab Results - Last 24 Hours (Table) 03/18/25 03/18/25 Range/Units 05:35 05:35 Plt Count 115 L (140-440) 10*3/uL Glucose 133 H (74-99) mg/dL ALT 82 H (4-34) U/L
--- NOTE | 2025-03-18 15:21 | P.PN ---
Subjective Progress Note Date: 03/18/25 Hospital course: Patient is a pleasant 75-year-old female with a past medical history of paroxysmal atrial fibrillation coagulation with Eliquis, hypertension, hyperlipidemia, previous CVA x 3 with last stroke 2011, and GERD. She presented to the emergency department with a chief complaint of epigastric pain, inability to take a deep breath, and shortness of breath. Patient reports the symptoms began approximately 1 PM yesterday afternoon and progressively worsened. She states pain to epigastric region radiating up into her chest and into her back and has been accompanied by weakness, severe fatigue, and chills. She states she did not assess her temperature but does not know if she was running a fever, denies diaphoresis, headache, lightheadedness, palpitations, cough or congestion, shortness of breath at rest, nausea, vomiting, or experiencing any difficulties with or changes in her urinary or bowel function. Patient reports last bowel movement was 03/14/2025 and this is normal for her. Patient reports. Recent diagnosis of kidney cancer. Upon arrival to our facility, patient under went evaluation in the emergency department. Vital signs upon arrival show blood pressure 104/69, heart rate 125, respiratory rate 22, temp 98.7 F, and SpO2 of 89% on 2 L O2 via nasal cannula. EKG completed showed tachycardia at 120 bpm. Chest x-ray completed negative for acute cardiopulmonary process. CT abdomen and pelvis without contrast completed showing acute diverticulitis involving the proximal sigmoid colon with inflamed diverticula and adjacent inflammatory changes and cholelithiasis with no evidence of ductal dilation or signs of acute cholecystitis, simple bilateral renal cysts and umbilical hernia containing fat. Labs completed and reviewed. CBC showing thrombocytopenia with platelet count of 110 and elevated neutrophils of 7.83. Coagulation profile normal findings. BMP showing mild prerenal azotemia with BUN of 23 and blood glucose of 179. Lactic acid was 2.0. Calcium 9.4. Liver profile showing elevated total bili of 2.2, AST of 229, ALT of 216, and alkaline phosphatase of 158. Troponin 0.013 and proBNP 1680. Patient admitted under our services with consultation to surgery. Physical exam: Vital signs reviewed and stable. General: Nontoxic, no distress and appears stated age. Derm: Skin warm and dry, normal coloration for ethnicity. Head: Atraumatic, normocephalic and symmetric. Eyes: EOM's intact, no lid lag, and anicteric sclera Mouth: no lip lesions, mucus membranes moist Cardiovascular: regular rate and rhythm with normal S1S2, no murmur, positive posterior tibial pulses bilaterally, and cap refill < 2 seconds. Lungs: Respirations even, regular, and unlabored on room air. Lungs diminished otherwise clear with no rhonchi, no rales, no wheezing, and no accessory muscle usage. Abdominal: soft distended, non tender upon palpation, no guarding, no appreciable organomegaly Ext: ROM intact. No gross muscle atrophy, no edema, no contractures Neuro: Speech clear, face symmetrical and CN II-XII grossly intact with no noted focal neuro deficits Psych: Alert and oriented to person, place, time, and situation. Appropriate and pleasant affect. Assessment and Plan of Care: Acute diverticulitis Cholelithiasis Hyperbilirubinemia with transaminitis, improved and nearly resolved Thrombocytopenia, improving Sepsis on admission, secondary to above - Continue IV antibiotics with Rocephin 2 g daily and Flagyl 500 mg every 8 hours. - General Surgery following, discussed plan of care with General Surgery [employer]PERINTENDENT SYSTEM [employer]PERATION recommending continued IV antibiotics for 24 hours, advance diet to I just like to say that you because every time I do you like what what I do your is trained you so well and . - Gallbladder US showing no evidence for acute process, revealing cholelithiasis and hepatic steatosis. - Advance from full liquid diet to fiber diet later today. - Hold hepatotoxic medications including atorvastatin pending repeat labs. - Patient placed on telemetry monitoring and we will trend troponins. - Repeat morning CBC and CMP for close monitoring of thrombocytopenia and hyperbilirubinemia with transaminitis Paroxysmal atrial fibrillation Hypertension anemia History of CVA x 3 - Monitor vital signs and continue daily medication regimen with Eliquis 5 mg twice daily, atorvastatin 40 mg nightly, and amlodipine 5 mg daily. Data and imaging reviewed: Labs reviiwed. CBC showing improvement in thrombocytopenia with platelet count of 115. BMP unremarkable. Blood glucose 133. Magnesium 1.9. Liver profile showing continued improvement and near resolution of previous transaminitis with AST of 25, ALT of 82, and alkaline phosphatase of 116 as well as normal bilirubin of 1.0. - Vital signs reviewed. BP 113/65, heart rate 80, respiratory rate 18, temp 98.2 F, and SpO2 of 93% on 2 L O2 via nasal cannula. CODE STATUS: Full code DVT prophylaxis: [place] Discussed with: Patient, RN, and general surgery PA Anticipated discharge date: Pending clinical course, likely tomorrow morning Anticipated discharge place: Pending clinical course Patient was seen independently by Nurse Practitioner. This document was prepared using [email or web address] dictation software. Please allow for errors in transmission and coordination engineer while rare they do occur. Romain Moura [employer]PERINTENDENT SYSTEM [employer]PER[employer] rendered care for this patient independently, reviewed the findings and plan as documented in the note above and agree with plan. I did not physically speak with or examine the patient on this date. Objective - Vital Signs Vital signs: Vital Signs Temp 98.4 F 03/18/25 02:46 Pulse 78 03/18/25 02:46 Resp 18 03/18/25 02:46 BP 100/58 03/18/25 02:46 Pulse Ox 94 L 03/18/25 02:46 FiO2 Intake & Output 03/17/25 03/18/25 03/18/25 18:59 06:59 18:59 Intake Total 550 Balance 550 Intake: Oral 550 Other: Voiding Method Toilet # Voids 1 - Labs CBC & Chem 7: 03/18/25 05:35 03/18/25 05:35 Labs: Abnormal Lab Results - Last 24 Hours (Table) 03/18/25 03/18/25 Range/Units 05:35 05:35 Plt Count 115 L (140-440) 10*3/uL Glucose 133 H (74-99) mg/dL ALT 82 H (4-34) U/L
[2025-03-18] MEDS: IBUPROFEN 400 MG TAB PO PRN (20:13)
[2025-03-19 02:34] VITALS: TEMP 98.3
[2025-03-19 07:50] VITALS: BP 133/82; PULSE 56; RESP 20
[2025-03-19 08:41] LABS: ALT 61 U/L (8-44); AST 18 U/L (13-35); Albumin 3.3 g/dL (3.8-4.9); Albumin/Globulin Ratio 1.32 Ratio (1.60-3.17); Alkaline Phosphatase 94 U/L (41-126); BUN/Creat Ratio 19.38 Ratio (12.00-20.00); Blood Urea Nitrogen 15.5 mg/dL (9.0-27.0); Calcium 8.6 mg/dL (8.7-10.3); Carbon Dioxide 22.9 mmol/L (21.6-31.8); Chloride 111 mmol/L (96-109); Globulin 2.5 g/dL (1.6-3.3); Glucose 127 mg/dL (70-110); Magnesium 1.8 mg/dL (1.5-2.4); Potassium 3.9 mmol/L (3.5-5.5); Sodium 143 mmol/L (135-145); Total Bilirubin 0.5 mg/dL (0.3-1.2); Total Protein 5.8 g/dL (6.2-8.2)
[2025-03-19 08:57] LABS: HGB 11.6 g/dL (12.0-15.0); MCH 30.9 pg (27.0-32.0); MCHC 32.2 g/dL (32.0-37.0); MCV 95.7 FL (80.0-97.0); Mean Platelet Volume 10.6 FL (9.5-12.2); NRBC Per 100 WBC 0 X 10*3/uL (0.00-0.01); Platelet Count 123 X 10*3/uL (140-440); RBC 3.76 X 10*6/uL (4.10-5.20); RDW 14.6 % (11.5-14.5); WBC 5.47 X 10*3/uL (4.50-10.00)
--- NOTE | 2025-03-19 13:48 | P.DS ---
Providers Date of admission: 03/16/25 07:16 Expected date of discharge: 03/19/25 Attending physician: Taylor Blue MD Consults: 03/16/25 09:38 Consult Physician Routine Consulting Provider: Trenton Cummings Consult Reason/Comments: RUQ pain, diverticulitis, transaminitis, cholelithiasis Do you want consulting provider notified?: Yes Primary care physician: Stated None Hospital Course: Discharge Diagnosis: Acute diverticulitis. Patient completed 4-day course of IV antibiotics with Rocephin 2 g IVPB daily and Flagyl 500 mg IVPB every 8 hours. She had full resolution of previous presenting symptoms. Diet was slowly advanced and she is tolerating a low fiber diet without any complaints of abdominal pain, nausea, vomiting. She reports normal bowel function with last bowel movement reported to be yesterday evening. Patient was evaluated by general surgery recommending outpatient follow-up for scheduling of colonoscopy in 4 to 6 weeks. Patient being discharged home on an additional 6-day course of oral antibiotics with Augmentin to complete a 10-day antibiotic course. Patient was educated on diverticulitis and following diverticular diet. She has to follow-up outpatient with PCP in 1 to 2 days and with general surgeon in 4 weeks. Cholelithiasis. Hyperbilirubinemia, resolved Transaminitis, improved Thrombocytopenia, improving Sepsis on admission, secondary to above Paroxysmal atrial fibrillation Hypertension anemia History of CVA x 3 Hospital Course: Patient is a pleasant 75-year-old female with a past medical history of paroxysmal atrial fibrillation coagulation with Eliquis, hypertension, hyperlipidemia, previous CVA x 3 with last stroke 2011, and GERD. She presented to the emergency department with a chief complaint of epigastric pain, inability to take a deep breath, and shortness of breath. Patient reports the symptom Patient completed 4-day course of IV antibiotics withs began approximately 1 PM yesterday afternoon and progressively worsened. She states pain to epigastric region radiating up into her chest and into her back and has been accompanied by weakness, severe fatigue, and chills. She states she did not assess her temperature but does not know if she was running a fever, denies diaphoresis, headache, lightheadedness, palpitations, cough or congestion, shortness of breath at rest, nausea, vomiting, or experiencing any difficulties with or changes in her urinary or bowel function. Patient reports last bowel movement was 03/14/2025 and this is normal for her. Patient reports. Recent diagnosis of kidney cancer. Upon arrival to our facility, patient underwent evaluation in the emergency department. Vital signs upon arrival show blood pressure 104/69, heart rate 125, respiratory rate 22, temp 98.7 F, and SpO2 of 89% on 2 L O2 via nasal cannula. EKG completed showed tachycardia at 120 bpm. Chest x-ray completed negative for acute cardiopulmonary process. CT abdomen and pelvis without contrast completed showing acute diverticulitis involving the proximal sigmoid colon with inflamed diverticula and adjacent inflammatory changes and cholelithiasis with no evidence of ductal dilation or signs of acute cholecystitis, simple bilateral renal cysts and umbilical hernia containing fat. Labs completed and reviewed. CBC showing thrombocytopenia with platelet count of 110 and elevated neutrophils of 7.83. Coagulation profile normal findings. BMP showing mild prerenal azotemia with BUN of 23 and blood glucose of 179. Lactic acid was 2.0. Calcium 9.4. Liver profile showing elevated total bili of 2.2, AST of 229, ALT of 216, and alkaline phosphatase of 158. Troponin 0.013 and proBNP 1680. Patient admitted under our services with consultation to surgery. Patient completed 4-day course of IV antibiotics with Rocephin 2 g IVPB daily and Flagyl 500 mg IVPB every 8 hours. She had full resolution of previous presenting symptoms. Diet was slowly advanced and she is tolerating a low fiber diet without any complaints of abdominal pain, nausea, vomiting. She reports normal bowel function with last bowel movement reported to be yesterday evening. Patient was evaluated by general surgery recommending outpatient follow-up for scheduling of colonoscopy in 4 to 6 weeks. Patient being discharged home on an additional 6-day course of oral antibiotics with Augmentin to complete a 10-day antibiotic course for treatment of her acute diverticulitis. Patient was educated on diverticulitis and following diverticular diet. She has to follow- up outpatient with PCP in 1 to 2 days and with general surgeon in 4 weeks. Physical exam: Vital signs reviewed and stable. General: Nontoxic, no distress and appears stated age. Derm: Skin warm and dry, normal coloration for ethnicity. Head: Atraumatic, normocephalic and symmetric. Eyes: EOM's intact, no lid lag, and anicteric sclera Mouth: no lip lesions, mucus membranes moist Cardiovascular: regular rate and rhythm with normal S1S2, no murmur, positive posterior tibial pulses bilaterally, and cap refill < 2 seconds. Lungs: Respirations even, regular, and unlabored on room air. Lungs diminished otherwise clear with no rhonchi, no rales, no wheezing, and no accessory muscle usage. Abdominal: soft distended, non tender upon palpation, no guarding, no appreciable organomegaly Ext: ROM intact. No gross muscle atrophy, no edema, no contractures Neuro: Speech clear, face symmetrical and CN II-XII grossly intact with no noted focal neuro deficits Psych: Alert and oriented to person, place, time, and situation. Appropriate and pleasant affect. A total of 35 minutes of time were spent preparing this complex discharge summary. Pt was discharged on 03/19/2025 at 9:55 AM Patient was seen independently by Nurse Practitioner. This document was prepared using [employer] dictation software. Please allow for errors in technical manager chemical plant while rare they do occur. Romain Moura NP rendered care for this patient independently, reviewed the findings and plan as documented in the note above. I did not physically speak with or examine the patient on this date. Patient Condition at Discharge: Stable Plan - Discharge Summary Discharge Rx Participant: No New Discharge Prescriptions: New Amoxic-Pot Clav 875-125Mg [Augmentin 875-125] 1 tab PO Q12HR 6 Days #12 tab L.acidoph,Paracasei, B.lactis [Probiotic] 1 each PO DAILY 30 Days #30 capsule Continue amLODIPine BESYLATE [Norvasc] 5 mg PO DAILY Tolterodine ER [Detrol LA] 4 mg PO DAILY Cholecalciferol [Vitamin D3 (25 Mcg = 1000 Iu)] 25 mcg PO DAILY Apixaban [Eliquis] 5 mg PO BID #60 tab Cyanocobalamin (Vitamin B-12) [Vitamin B-12] 1,000 mcg PO DAILY Rosuvastatin [Crestor] 20 mg PO HS Folic Acid 0.4 mg PO DAILY Bumetanide [BUMEX] 1 mg PO DAILY Potassium Chloride ER [K-Dur 20] 20 meq PO DAILY Omeprazole 40 mg PO BID Ipratropium-Albuterol Nebulize [Duoneb 0.5 mg-3 mg/3 ml Soln] 3 ml INHALATION RT-QID PRN PRN Reason: Shortness Of Breath Discharge Medication List amLODIPine BESYLATE [Norvasc] 5 mg PO DAILY 04/14/18 [History] Tolterodine ER [Detrol LA] 4 mg PO DAILY 10/14/18 [History] Cholecalciferol [Vitamin D3 (25 Mcg = 1000 Iu)] 25 mcg PO DAILY 02/03/22 [History] Apixaban [Eliquis] 5 mg PO BID #60 tab 02/06/22 [Rx] Bumetanide [BUMEX] 1 mg PO DAILY 03/16/25 [History] Cyanocobalamin (Vitamin B-12) [Vitamin B-12] 1,000 mcg PO DAILY 03/16/25 [History] Folic Acid 0.4 mg PO DAILY 03/16/25 [History] Ipratropium-Albuterol Nebulize [Duoneb 0.5 mg-3 mg/3 ml Soln] 3 ml INHALATION RT-QID PRN 03/16/25 [History] Omeprazole 40 mg PO BID 03/16/25 [History] Potassium Chloride ER [K-Dur 20] 20 meq PO DAILY 03/16/25 [History] Rosuvastatin [Crestor] 20 mg PO HS 03/16/25 [History] Amoxic-Pot Clav 875-125Mg [Augmentin 875-125] 1 tab PO Q12HR 6 Days #12 tab 03/19/25 [Rx] L.acidoph,Paracasei, B.lactis [Probiotic] 1 each PO DAILY 30 Days #30 capsule 03/19/25 [Rx] Follow up Appointment(s)/Referral(s): Trenton Cummings DO [Doctor of Osteopathic Medicine] - 4 Weeks (Will need outpatient colonoscopy in 4-6 weeks.) Lavelle Jesus MD [STAFF PHYSICIAN] - 1 Week (Please call and schedule [email or web address] available appointment for outpatient follow up and establishment of care with PCP. ) Patient Instructions/Handouts: Diverticulitis (DC), Diverticulitis Diet (DC) Activity/Diet/Wound Care/Special Instructions: Activity: As tolerated. Take breaks as needed. Diet: Low Fiber diet. Special Instructions: Take all of your medications as directed and remember to keep all of your doctor's appointments and follow-up as needed. Thank you for allowing us to participate in your care, it was truly a pleasure having you for our patient!!! Discharge Disposition: HOME SELF-CARE
--- NOTE | 2025-03-24 10:58 | CDI ---
Documentation Clarification Form Date: 03/24/2025 10:43:57 AM From: Pearl Ogden Phone: Admit Date: 03/16/2025 07:16:00 AM Patient Name: Elda Gonzalez Visit Number: [id number] Discharge Date: 03/19/2025 01:45:00 PM ATTENTION: The Clinical Documentation Specialists (CDI) and [facility] Coding Staff appreciate your assistance in clarifying documentation. Please respond to the clarification below the line at the bottom and electronically sign. The CDI & [facility] Coding staff will review the response and follow-up if needed. Please note: Queries are made part of the Legal Health Record. If you have any questions, please contact the author of this message via ITS. Doctor/Provider: Romain Moura Sepsis is documented per H&P, 03/17 & 03/18 Progress Notes and DCS which may lack sufficient clinical evidence/support in the medical record. Additional clarification is requested. History/Risk Factors: 75yo F, Acutediverticulitis, cholelithiasis. hyperbilirubinemia,transaminitis, thrombocytopenia, PAF, HTN, anemia Hx CVA Clinical Indicators: 03/16/2506/ 02:35 03:15 04:00 T 98.7 F MO 125 113 103 RR 22 36 24 BP104/69 131/57 123/59 O2 89 95 94 03/16/2506/17/25 05:00 06:00 MO 92 87 RR 24 24 BP119/60 121/44 O2 95 95 WBC 8.59 Treatment: Patient completed 4-day course ofIV antibioticswith Rocephin 2 g IVPB daily and Flagyl 500 mg IVPB every 8 hours. She had full resolution of previous presenting symptoms. After work up and study, please clarify which diagnosis is most appropriate? [ ] Sepsis is ruled out. The patient had a localized infection without systemic response or organ dysfunction. [ ] Sepsis was initially suspected. Subsequent clinical findings did not support the diagnosis, and it has been ruled out. [ x] Sepsis is clinically supported as evidenced by these additional clinical indicators: _tachycardia, tachypnea, _low grade temp in house of 99.4 and reported fever LOOM CHECKER with documented source of infection [ ] Other, please specify [ ] Unable to determine SIRS Criteria: 2 or more of the following may indicate SIRS Temperature < 96.8F (36C) or > 101.0F (38.3C) X Heart Rate > 90 bpm X Respiratory Rate > 20 breaths/min or PaCO2 < 32 mmHg White Blood Cell Count > 12,000 or < 4,000 cells/mm3 or > 10% bands (Template Last Reviewed: September 2023) MTDD
== END 2025-03-19 13:45 | disposition home or self-care (01) | DRG 872 ==
LOC: EC 02:34 → 1SOBS 07:16 → 4SSUR 03-18 17:54
PROVIDERS: ADMIT Internal Medicine; ATTEND Internal Medicine
DX: A41.9 Sepsis, unspecified organism (principal); D69.6 Thrombocytopenia, unspecified; C64.9 Malignant neoplasm of unspecified kidney, except renal pelvis; K76.89 Other specified diseases of liver; E80.6 Other disorders of bilirubin metabolism; D63.0 Anemia in neoplastic disease; I10 Essential (primary) hypertension; K57.32 Diverticulitis of large intestine without perforation or abscess without bleeding; I48.0 Paroxysmal atrial fibrillation; K80.20 Calculus of gallbladder without cholecystitis without obstruction; Z86.73 Personal history of transient ischemic attack (TIA), and cerebral infarction without residual deficits; Z79.01 Long term (current) use of anticoagulants; Z79.899 Other long term (current) drug therapy; Z87.891 Personal history of nicotine dependence
CPT/HCPCS: 36415; 71045; 74176; 76705; 80053; 83605; 83735; 83880; 84484; 85025; 85027; 85610; 85730; 93005; 94640; 94760; 96361; 96365; 99285

== ENCOUNTER → 2025-04-26 | Outpatient (CLI) | payer MEDICARE, OTHER ==
[2025-04-26 15:34] LABS: ALT 22 U/L (8-44); AST 20 U/L (13-35); Anion Gap 10.80 mmol/L (4.00-12.00); BUN/Creat Ratio 20.00 Ratio (12.00-20.00); Blood Urea Nitrogen 18.0 mg/dL (9.0-27.0); Calcium 9.4 mg/dL (8.7-10.3); Carbon Dioxide 25.2 mmol/L (21.6-31.8); Chloride 103 mmol/L (96-109); Cholesterol 143.00 mg/dL (0.00-200.00); Glucose 158 mg/dL (70-110); HDL Cholesterol 45.50 mg/dL (40.00-60.00); LDL Cholesterol,Calculated 73.3 mg/dL (0.0-131.0); Potassium 4.2 mmol/L (3.5-5.5); Sodium 139 mmol/L (135-145); Triglycerides 121.00 mg/dL (0.00-149.00); VLDL Calculation 24.20 mg/dL (5.00-40.00)
== END | disposition home or self-care (01) ==
LOC: LABWHC1 09:32
PROVIDERS: ATTEND Internal Medicine Cardiovascular Disease
DX: E78.2 Mixed hyperlipidemia (principal)
CPT/HCPCS: 36415; 80048; 80061; 84450; 84460